=== PATIENT | male | born 1955 | race Caucasian/White ===

== ENCOUNTER 2017-05-10 13:08 | Emergency (ER) | payer OTHER ==
[~2017-05-10] VITALS: Ht 172.7 cm; Wt 92.0 kg
[~2017-05-10 13:08] MED LIST: AMLO5TAB2 PO; COLC0.6T37 PO; DILT180C PO; DIVA500T4 PO; FOLI-17 PO; GABA-826 PO; GABA300C10 PO; HYDR-3240 PO; HYDR200T PO; INDO50CA PO; LISI40TA PO; MAGN400T26 PO; METO100T5 PO; MULT-750 PO; THIA100T10 PO; ZOLP-413 PO; ZOLP10TA PO
[2017-05-10] MEDS ORDERED: methylPREDNISolone SOD SUCC 125 MG/2 ML ONE (13:27)
[2017-05-10] MEDS ORDERED: ALBUTEROL/IPRATROPIUM 2.5MG/0.5MG, 3 ML NPPB ONE (13:30)
[2017-05-10] MEDS ORDERED: methylPREDNISolone SOD SUCC 125 MG/2 ML IVP ONE (13:30)
[2017-05-10] MEDS ORDERED: SODIUM CHLORIDE 0.9%, 500ML IVBOLUS ONE ×2 (13:30→15:00)
[2017-05-10] MEDS ORDERED: SODIUM CHLORIDE FLUSH 10ML SYR IVF ONE (13:30)
[2017-05-10 13:41] LABS: MEAN CORPUSCULAR HEMOGLOBIN 26.8 pg (27.5-34.5); MEAN CORPUSCULAR HGB CONC 32.6 g/dL (33.2-36.2); MEAN CORPUSCULAR VOLUME 82.2 fL (81-97); PLATELET COUNT 489 x10^3/uL (130-400); RED BLOOD COUNT 4.18 x10^6/uL (4.38-5.82); RED CELL DISTRIBUTION WIDTH 17.5 % (9.4-14.8)
[2017-05-10 13:46] LABS: ALBUMIN 2.7 g/dL (3.4-5.0); ANION GAP 9 mmol/L (5-15); CALCIUM 8.9 mg/dL (8.5-10.1); CHLORIDE 106 mmol/L (98-107); CREATININE 1.67 mg/dL (0.7-1.3)
[2017-05-10] MEDS ORDERED: ALBUTEROL/IPRATROPIUM 2.5MG/0.5MG, 3 ML ONE (13:46)
[2017-05-10 13:50] LABS: ALKALINE PHOSPHATASE 67 U/L (45-117); BILIRUBIN,TOTAL 0.5 mg/dL (0.2-1.0); TOTAL PROTEIN 7.7 g/dL (6.4-8.2); TROPONIN I 0.032 ng/mL (0.000-0.045)
[2017-05-10 14:12] LABS: ALANINE AMINOTRANSFERASE 10 U/L (12-78)
[2017-05-10 14:17] LABS: BASOPHILS # (AUTO) 0.03 x10^3/uL (0-0.1); BASOPHILS % (AUTO) 0 % (0-1); EOSINOPHILS # (AUTO) 0.06 x10^3/uL (0-0.4); EOSINOPHILS % (AUTO) 1 % (1-7); LYMPHOCYTES # (AUTO) 1.21 x10^3/uL (1-3.4); LYMPHOCYTES % (AUTO) 11 % (22-44); MD SCAN; MONOCYTES # (AUTO) 1.48 x10^3/uL (0.2-0.8); MONOCYTES % (AUTO) 13 % (2-9); NEUTROPHILS # (AUTO) 8.75 x10^3/uL (1.8-6.8); NEUTROPHILS % (AUTO) 76 % (42-75)
[2017-05-10] MEDS ORDERED: SODIUM CHLORIDE 0.9% 1,000ML IVBOLUS ONE (17:00)
[2017-05-10 17:06] VITALS: BP 132/90
== END 2017-05-10 19:04 | disposition home or self-care (01) ==
LOC: ED 19:01
DX: J20.9 Acute bronchitis, unspecified (principal); E86.0 Dehydration; I10 Essential (primary) hypertension; J45.909 Unspecified asthma, uncomplicated; M10.9 Gout, unspecified
CPT/HCPCS: 36415; 71045; 80053; 83880; 84484; 85025; 93005; 94640; 96361; 96374; 99285; J2930; J7030; J7040; J7620

== ENCOUNTER 2017-11-22 03:57 | Emergency (ER) | payer OTHER ==
[~2017-11-22] VITALS: Ht 172.7 cm; Wt 74.2 kg
[~2017-11-22 03:57] MED LIST changes: -HYDR200T PO; +HYDR200T72 PO; -INDO50CA PO; +INDO50CA5 PO
[2017-11-22 03:58] VITALS: BP 146/88
[2017-11-22] MEDS ORDERED: COLCHICINE 0.6 MG TABLET PO ONE (05:00)
[2017-11-22] MEDS ORDERED: ONDANSETRON ODT 4 MG PO ONE (05:00)
[2017-11-22] MEDS ORDERED: HYDROmorphone 1 MG/ML, 1ML IVPush PRN (05:00)
[2017-11-22] MEDS ORDERED: SODIUM CHLORIDE FLUSH 10ML SYR IVF ONE (05:00)
[2017-11-22] MEDS ORDERED: COLCHICINE 0.6 MG TABLET ONE (05:58)
[2017-11-22] MEDS ORDERED: ONDANSETRON ODT 4 MG ONE (05:58)
[2017-11-22] MEDS ORDERED: HYDROmorphone 2 MG/ML, 1ML ONE (06:01)
[2017-11-22 06:29] LABS: MEAN CORPUSCULAR HEMOGLOBIN 26.7 pg (27.5-34.5); MEAN CORPUSCULAR HGB CONC 32.8 g/dL (33.2-36.2); MEAN CORPUSCULAR VOLUME 81.3 fL (81-97); MEAN PLATELET VOLUME 7.2 fL (7.4-10.4); PLATELET COUNT 444 x10^3/uL (130-400); RED BLOOD COUNT 4.41 x10^6/uL (4.38-5.82); RED CELL DISTRIBUTION WIDTH 23.9 % (9.4-14.8)
[2017-11-22] MEDS ORDERED: HYDROmorphone 1 MG/ML, 1ML IM ONE (06:30)
[2017-11-22 06:31] LABS: ALANINE AMINOTRANSFERASE 10 U/L (12-78); ALBUMIN 3.2 g/dL (3.4-5.0); ANION GAP 10 mmol/L (5-15); CALCIUM 9.3 mg/dL (8.5-10.1); CHLORIDE 104 mmol/L (98-107); CREATININE 1.11 mg/dL (0.7-1.3)
[2017-11-22 06:33] LABS: ALKALINE PHOSPHATASE 85 U/L (45-117); BILIRUBIN,TOTAL 0.5 mg/dL (0.2-1.0); TOTAL PROTEIN 7.8 g/dL (6.4-8.2)
[2017-11-22 06:56] LABS: BASOPHILS # (AUTO) 0.02 x10^3/uL (0-0.1); BASOPHILS % (AUTO) 0 % (0-1); EOSINOPHILS # (AUTO) 0.03 x10^3/uL (0-0.4); EOSINOPHILS % (AUTO) 0 % (1-7); LYMPHOCYTES % (AUTO) 16 % (22-44); MD SCAN; MONOCYTES # (AUTO) 1.51 x10^3/uL (0.2-0.8); MONOCYTES % (AUTO) 15 % (2-9); NEUTROPHILS # (AUTO) 6.65 x10^3/uL (1.8-6.8); NEUTROPHILS % (AUTO) 68 % (42-75)
[2017-11-23] MEDS ORDERED: MONT10TA6 PO (02:28)
== END 2017-11-22 07:35 | disposition home or self-care (01) ==
LOC: ED 05:38
DX: M10.042 Idiopathic gout, left hand (principal); M10.041 Idiopathic gout, right hand; M25.562 Pain in left knee; I10 Essential (primary) hypertension; G62.9 Polyneuropathy, unspecified; J45.909 Unspecified asthma, uncomplicated; Z88.8 Allergy status to other drugs, medicaments and biological substances
CPT/HCPCS: 36415; 73130; 73564; 80053; 84550; 85025; 96372; 99285; J1170

== ENCOUNTER 2018-02-01 08:37 | Emergency (ER) | payer OTHER ==
[~2018-02-01] VITALS: Ht 172.7 cm; Wt 96.5 kg
[~2018-02-01 08:37] MED LIST changes: +ALLO100T30 PO; -AMLO5TAB2 PO; +AMLO5TAB7 PO; +CEFD300C37 PO; +MONT10TA6 PO; +PRED10TA PO
[2018-02-01 09:28] LABS: BASOPHILS # (AUTO) 0.03 x10^3/uL (0-0.1); BASOPHILS % (AUTO) 0 % (0-1); EOSINOPHILS # (AUTO) 0.08 x10^3/uL (0-0.4); EOSINOPHILS % (AUTO) 1 % (1-7); LYMPHOCYTES # (AUTO) 2.48 x10^3/uL (1-3.4); LYMPHOCYTES % (AUTO) 31 % (22-44); MD NO; MEAN CORPUSCULAR HEMOGLOBIN 27.3 pg (27.5-34.5); MEAN CORPUSCULAR VOLUME 82.6 fL (81-97); MEAN PLATELET VOLUME 8.1 fL (7.4-10.4); MONOCYTES # (AUTO) 0.62 x10^3/uL (0.2-0.8); MONOCYTES % (AUTO) 8 % (2-9); NEUTROPHILS % (AUTO) 61 % (42-75); PLATELET COUNT 385 x10^3/uL (130-400); RED BLOOD COUNT 5.08 x10^6/uL (4.38-5.82); RED CELL DISTRIBUTION WIDTH 19.2 % (9.4-14.8)
[2018-02-01] MEDS ORDERED: ONDANSETRON 2MG/ML, 2ML IVPush ONE (09:30)
[2018-02-01] MEDS ORDERED: SODIUM CHLORIDE FLUSH 10ML SYR IVF ONE (09:30)
[2018-02-01 09:37] LABS: ALBUMIN 3.3 g/dL (3.4-5.0); ANION GAP 8 mmol/L (5-15); CALCIUM 9.2 mg/dL (8.5-10.1); CHLORIDE 105 mmol/L (98-107); CREATININE 0.89 mg/dL (0.7-1.3)
[2018-02-01] MEDS ORDERED: ONDANSETRON 2MG/ML, 2ML ONE (10:08)
[2018-02-01] MEDS ORDERED: OMNIPAQUE 350 MG/ML, 100ML BOTTLE ONE (10:09)
[2018-02-01] MEDS ORDERED: CIPROFLOXACIN/PMX 400MG/200ML 200 ML IV ONE (10:30)
[2018-02-01] MEDS ORDERED: KETOROLAC 30 MG/1 ML IVPush ONE (10:30)
[2018-02-01] MEDS ORDERED: METRONIDAZOLE PMX 500MG/100ML 100 ML IV ONE (10:30)
[2018-02-01 10:35] LABS: MICROSCOPIC NOT IND
[2018-02-01 10:39] LABS: CULTURE INDICATED? NO
[2018-02-01] MEDS ORDERED: KETOROLAC 30 MG/1 ML ONE (10:51)
[2018-02-01 11:06] VITALS: BP 156/100
== END 2018-02-01 11:09 | disposition home or self-care (01) ==
LOC: ED 09:22
DX: K57.30 Diverticulosis of large intestine without perforation or abscess without bleeding (principal); J45.909 Unspecified asthma, uncomplicated; I10 Essential (primary) hypertension; M19.90 Unspecified osteoarthritis, unspecified site
CPT/HCPCS: 36415; 74177; 80048; 81003; 82040; 85025; 96374; 96375; 99285; J1885; J2405; Q9967

== ENCOUNTER 2018-02-05 08:10 | Emergency (ER) | payer OTHER ==
[~2018-02-05] VITALS: Ht 172.7 cm; Wt 96.9 kg
[2018-02-05 09:55] VITALS: BP 125/74
== END 2018-02-05 10:20 | disposition home or self-care (01) ==
LOC: ED 09:43
DX: M13.131 Monoarthritis, not elsewhere classified, right wrist (principal); M10.9 Gout, unspecified
CPT/HCPCS: 29260; 99284

== ENCOUNTER 2018-04-17 19:48 | Emergency (ER) | payer OTHER ==
[~2018-04-17] VITALS: Ht 172.7 cm; Wt 95.0 kg
[~2018-04-17 19:48] MED LIST changes: +AMLO-150 PO; -AMLO5TAB7 PO
--- NOTE | 2018-04-17 19:57 | NUR ---
bib [facility] for right hand and wrist gout flare up, pt stated he took his home gout medications with no relief, pt denies trauma to wrist. monitors applied, siderails up x2, call light within reach. awaiting erp for eval
[2018-04-17] MEDS ORDERED: FAMOTIDINE 20 MG TABLET ONE (20:10)
[2018-04-17] MEDS ORDERED: INDOMETHACIN 50 MG CAPSULE ONE (20:11)
[2018-04-17] MEDS ORDERED: COLCHICINE 0.6 MG TABLET ONE (20:11)
[2018-04-17] MEDS ORDERED: OXYcodone/APAP 10/325MG TABLET ONE (20:11)
[2018-04-17] MEDS ORDERED: COLCHICINE 0.6 MG TABLET PO ONE (20:30)
[2018-04-17] MEDS ORDERED: INDOMETHACIN 50 MG CAPSULE PO ONE (20:30)
[2018-04-17] MEDS ORDERED: FAMOTIDINE 20 MG TABLET PO ONE (20:30)
[2018-04-17] MEDS ORDERED: OXYcodone/APAP 10/325MG TABLET PO ONE (20:30)
--- NOTE | 2018-04-17 21:37 | NUR ---
TASK RN: PT MEDICATED PER EMAR FOR HTN. PT REPORTS HX OF HTN AND COMPLIANT WITH MEDICATIONS. DENIES CP/SOB/STAUFFER. BP/SPO2/ECG MONITORING IN PLACE.
[2018-04-17 21:58] VITALS: BP 137/83
== END 2018-04-17 22:12 | disposition home or self-care (01) ==
LOC: ED 20:31
DX: M10.031 Idiopathic gout, right wrist (principal); I10 Essential (primary) hypertension; M19.90 Unspecified osteoarthritis, unspecified site; J45.909 Unspecified asthma, uncomplicated; F31.9 Bipolar disorder, unspecified
CPT/HCPCS: 99284

== ENCOUNTER 2018-08-02 13:07 | Inpatient (IN) | payer OTHER ==
[~2018-08-02] VITALS: Ht 172.7 cm; Wt 99.0 kg
[~2018-08-02 13:07] MED LIST changes: +ETOMIDATE 40 MG/20 ML ONE; +MIDAZOLAM 1 MG/ML, 5ML ONE; +PROPOFOL 10 MG/ML, 100ML IV ONE; +PROPOFOL 10 MG/ML, 20ML ONE; +SUCCINYLCHOLINE 20 MG/ML, 10ML ONE
--- NOTE | 2018-08-02 13:15 | NUR ---
REPORT RECEIVED FROM JANSE STRANGE. ASSUMED CARE OF PT. THIS IS A 63 YO MALE BIB [facility] FOR CONFUSION PER . PT IS ABLE TO ANSWER ALL ORIENTATION QUESTIONS WITHOUT DIFFICULTY. PER EMS, PT HAS HAVING AUDITORY HALLUCINATIONS AND SPEAKING TO PEOPLE WHO WERENT THERE. PT ATTEMPTED TO EAT SOMETHING OUT OF HAND IN ROOM, NOTHING IN HAND. PT IS RESTLESS ON GURNEY BUT COOPERATIVE. DRY LIPS AND MUCOUS MEMBRANES. PT HAS STERISTRIPS ON RIGHT SIDE OF NECK THAT APPEAR CLEAN, INTACT AND WOUND APPEARS WELL HEALING. PER PT IT IS FROM A LAMINECTOMY ON 05/27. NO SWELLING OR DISCHARGE NOTED. PT ON CONT BP, CARDIAC AND O2 MONITORS. WILL CONT TO MONITOR PT.
[2018-08-02] MEDS ORDERED: DOXY100T PO (13:26)
[2018-08-02] MEDS ORDERED: DOCU100T3 PO (13:27)
[2018-08-02] MEDS ORDERED: OXYC-302 PO (13:27)
[2018-08-02] MEDS ORDERED: CYCL-259 PO (13:27)
[2018-08-02] MEDS ORDERED: DILT240T3 PO (13:30)
[2018-08-02] MEDS ORDERED: SODIUM CHLORIDE FLUSH 10ML SYR IVF ONE (13:30)
[2018-08-02] MEDS ORDERED: SODIUM CHLORIDE 0.9% 1,000ML IVBOLUS ONE (13:30)
[2018-08-02] MEDS ORDERED: PRAM0.12 PO (13:31)
[2018-08-02] MEDS ORDERED: TRAZ-137 PO (13:32)
[2018-08-02] MEDS ORDERED: DULO30CA2 PO (13:33)
--- NOTE | 2018-08-02 13:59 | NUR ---
REPORT FROM JANES GONZALEZ. 2/2 NS HUNG PER ORDER. PT SITTING UP IN GURNEY, AWAKE/ALERT AND FOLLOWING COMMANDS. PT SPEECH IS APPROPRIATE AND ANSWERS QUESTIONS APPROPRIATELY. PT REPORTS RECENT ADMIT TO HOSPITAL FOR 'SIX WEEKS' FOLLOWING NECK SX. REPORTS MILD PAIN OVER SX SITE. BP/SPO2/ECG MONITORING IN PLACE. AFIB, HR 100-125 NOTED ON MONITOR. PT AWARE OF NEED FOR UA. URINAL AT BEDSIDE.
--- NOTE | 2018-08-02 14:00 | NUR ---
REPORT TO JANES ARMENTA WHO ASSUMED CARE OF PT.
[2018-08-02 14:13] LABS: BASOPHILS # (AUTO) 0.03 x10^3/uL (0-0.1); BASOPHILS % (AUTO) 0 % (0-1); EOSINOPHILS # (AUTO) 0.14 x10^3/uL (0-0.4); EOSINOPHILS % (AUTO) 1 % (1-7); LYMPHOCYTES # (AUTO) 1.89 x10^3/uL (1-3.4); LYMPHOCYTES % (AUTO) 17 % (22-44); MD NO; MEAN CORPUSCULAR HEMOGLOBIN 30.4 pg (27.5-34.5); MEAN CORPUSCULAR HGB CONC 33.8 g/dL (33.2-36.2); MEAN CORPUSCULAR VOLUME 89.8 fL (81-97); MEAN PLATELET VOLUME 7.4 fL (7.4-10.4); MONOCYTES # (AUTO) 0.94 x10^3/uL (0.2-0.8); MONOCYTES % (AUTO) 9 % (2-9); NEUTROPHILS # (AUTO) 7.81 x10^3/uL (1.8-6.8); NEUTROPHILS % (AUTO) 72 % (42-75); PLATELET COUNT 344 x10^3/uL (130-400); RED BLOOD COUNT 5.27 x10^6/uL (4.38-5.82); RED CELL DISTRIBUTION WIDTH 16.8 % (9.4-14.8)
[2018-08-02 14:22] LABS: INTERNATIONAL NORMALIZED RATIO 0.95 (0.93-1.1)
[2018-08-02 14:26] LABS: ALBUMIN 3.6 g/dL (3.4-5.0); ANION GAP 10 mmol/L (5-15); CALCIUM 8.9 mg/dL (8.5-10.1); CHLORIDE 106 mmol/L (98-107)
[2018-08-02 14:33] LABS: ALANINE AMINOTRANSFERASE 16 U/L (12-78); ALKALINE PHOSPHATASE 66 U/L (45-117); BILIRUBIN,TOTAL 1.3 mg/dL (0.2-1.0); CREATININE 1.09 mg/dL (0.7-1.3); TOTAL PROTEIN 7.6 g/dL (6.4-8.2); TROPONIN I 0.027 ng/mL (0.000-0.045)
--- NOTE | 2018-08-02 14:46 | NUR ---
PT SITTING UP IN GIN WHEATLEY NOTED. PT STATES "I WENT TO THE BATHROOM", HANDING RN URINAL. NO URINE IN URINAL. RN REQUESTING PT TO ATTEMPT FOR URINE, "OKAY, I WILL TRY AGAIN"
--- NOTE | 2018-08-02 14:47 | NUR ---
CALLED CT REGARDING ORDERED CT. HOSE SUSPENDER CUTTER STATES "LAST TIME WE WERE READY FOR HIM HIS LABS WEREN'T BACK. WE JUST HAVEN'T HAD A CHANCE TO PICK HIM UP YET".
--- NOTE | 2018-08-02 14:57 | NUR ---
PT ABLE TO PROVIDE SMALL URINE SAMPLE. SAMPLE COLLECTED AND WALKED TO LAB. URINAL LEFT AT BEDSIDE WITH INSTRUCTIONS TO CONTINUE TO TRY FOR SAMPLE. DOA ADDED PER ERP.
--- NOTE | 2018-08-02 15:19 | NUR ---
PT RETURNED FROM CT. AWAKE/ALERT. BP/SPO2/ECG MONITORING IN PLACE.
[2018-08-02 15:21] LABS: AMPHETAMINE SCREEN, URINE Negative (Negative); BARBITURATE SCREEN, URINE Negative (Negative); BENZODIAZEPINE SCREEN, URINE Negative (Negative); CANNABINOID SCREEN, URINE Positive (Negative); COCAINE SCREEN, URINE Negative (Negative); METHADONE SCREEN, URINE Negative (Negative); OPIATE SCREEN, URINE Positive (Negative)
[2018-08-02 15:24] LABS: MICROSCOPIC INDICATED
[2018-08-02] MEDS ORDERED: OMNIPAQUE 350 MG/ML, 100ML BOTTLE ONE (15:26)
--- NOTE | 2018-08-02 15:52 | NUR ---
PT SITTING UP IN GURNEY, AWAKE/ALERT. AFIB ON MONITOR, HR 105-125. PT FOLLOWING COMMANDS. PT ABLE TO VERBALIZE THAT HE TAKES TRAZADONE AT HOME BUT THEN MUMBLES UNRELATED THOUGHTS TO SELF, "I DON'T KNOW. THAT COULD EASILY COST ONE MILLION DOLLARS". BP/SPO2/ECG MONITORING REMAIN IN PLACE. POC IS MRI
[2018-08-02 15:55] LABS: CULTURE INDICATED? NO
[2018-08-02] MEDS ORDERED: LORazepam 2 MG/ML, 1ML ONE ×2 (16:05→16:25)
[2018-08-02] MEDS ORDERED: LORazepam 2 MG/ML, 1ML IVPush STA (16:05)
--- NOTE | 2018-08-02 16:20 | NUR ---
ALIE RN (TASK RN) MEDICATED PT PER ERP INSTRUCTION PRIOR TO MRI. PT IN MRI AT THIS TIME
--- NOTE | 2018-08-02 16:27 | NUR ---
CALL FROM [employer] PROFESSOR STATING THAT PT WILL HOLD STILL FOR SCAN. ERP AWARE. VERBAL ORDER RECEIVED FOR ADDITION 1MG ATIVAN IV. JANES DASH TO MRI TO MEDICATE PT.
[2018-08-02] MEDS ORDERED: LORazepam 2 MG/ML, 1ML IVPush ONE (16:29)
[2018-08-02] MEDS ORDERED: DIPHENHYDRAMINE 50 MG/ML, 1ML ONE (16:42)
[2018-08-02] MEDS ORDERED: HYDROmorphone 2 MG/ML, 1ML ONE (16:46)
--- NOTE | 2018-08-02 16:57 | NUR ---
PT TRANSFERRED FROM 22 TO 04. REPORT RECEIVED FROM JANES ARMENTA. PT AGITATED AND CONFUSED. PT HAVING VISUAL AND AUDITORY HALLUCINATIONS. PT NOT ABLE TO ANSWER QUESTIONS. ATTEMPTING TO HIT STAFF. INCREASING CONFUSION COMPARED TO WHEN PT ARRIVED. RAYA MENDES AT BEDSIDE FOR INTUBATION. ET TUBE 8.0 PLACED 26 IN AT LIP. SKIN PINK AND DIAPHORETIC.
--- NOTE | 2018-08-02 16:57 | NUR ---
LATE ENTRY: UNABLE TO COMPLETE MRI D/T PT MOVEMENT AND CONCERN FOR SAFETY. PT RETURNED FROM MRI AWAKE/ALERT W/ WORSENING MENTATION, NOT FOLLOWING COMMANDS AND RESTLESS. PT CONTINUOUSLY ATTEMPTING TO GET OUT OF BED. ERP AT BEDSIDE. PT MEDICATED PER ERP VERBAL ORDER WITH BENADRYL AND DILAUDID IN ASSUMPTION THAT PT MAY BE EXPERIENCING OPIOID WITHDRAWAL. NO IMPROVEMENT IN MENTATION/RESTLESSNESS. PT THEN COMBATIVE, TRYING TO HIT ERP AND RN. AIRWAY PATENT THROUGHOUT; SPO2 >90% ON RA. PER ERP, PT MOVED TO TRAUMA 4 FOR INTUBATION. REPORT TO LISA TRAUMA RN.
[2018-08-02] MEDS ORDERED: PROPOFOL 100 ML IV PRN ×2 (17:02→21:40)
[2018-08-02] MEDS ORDERED: MIDAZOLAM 1 MG/ML, 2ML IVPush ONE ×2 (17:30→19:30)
[2018-08-02] MEDS ORDERED: SUCCINYLCHOLINE 20 MG/ML, 10ML IVPush ONE (17:30)
[2018-08-02] MEDS ORDERED: ETOMIDATE 20 MG/10 ML IV ONE (17:30)
[2018-08-02] MEDS ORDERED: DIPHENHYDRAMINE 50 MG/ML, 1ML IVPush ONE (17:30)
[2018-08-02] MEDS ORDERED: HYDROmorphone 1 MG/ML, 1ML INJ IVPush PRN (17:30)
--- NOTE | 2018-08-02 17:30 | NUR ---
PT ON CONT BP, CARDIAC AND O2 MONITORS. VENT IN PLACE. PT HAS HAD OG TUBE AND TURNER PLACED AT THIS ITME. SECOND IV ESTABLISHED. PT TOLERATING SEDATION WELL AT THIS TIME. PT 90'S NSR. PT ON CONT BP, CARDIAC AND O2 MONITORS. WILL CONT TO MONITOR PT.
[2018-08-02] MEDS ORDERED: MIDAZOLAM 1 MG/ML, 2ML ONE (17:59)
--- NOTE | 2018-08-02 18:00 | NUR ---
TO MRI WITH RT AND PT AT THIS TIME.
[2018-08-02] MEDS ORDERED: GADOBUTROL 10 MMOL/10 ML PFS ONE (18:42)
--- NOTE | 2018-08-02 19:10 | NUR ---
PT BACK FROM MRI AT THIS TIME. PT TOLERATED MRI WELL. PT INTUBATED. SKIN PWD. PT TOLERATED INTUBATION WELL WITH SEDATION AT THIS TIME. PT ON CONT BP, CARDIAC AND O2 MONITORS. PT 95 NSR ON HOUSING INSPECTOR. WILL CONT TO MONITOR PT.
--- NOTE | 2018-08-02 19:12 | NUR ---
PROPOFOL DRIP TITRATED PER PROTOCOL.
[2018-08-02] MEDS ORDERED: PIPERACILLIN/TAZO/PMX 3.375GM 50 ML IV ONE (20:00)
[2018-08-02] MEDS ORDERED: PIPERACILLIN/TAZO/PMX 3.375GM 50 ML ONE (20:02)
--- NOTE | 2018-08-02 20:03 | NUR ---
RAYA MENDES REQUESTED THAT PROPOFOL DRIP BE HELD AT THIS TIME IN ORDER FOR THE PA FOR NEURO MD GARCIA TO COME ASSESS PT. PROPOFOL DRIP HELP AT THIS TIME. PT NSR 90S ON KILN FURNITURE SAW TENDER. PT ON CONT BP, CARDIAC AND O2 MONITORS. CALL LIGHT WITHIN REACH. WILL CONT TO MONITOR PT.
[2018-08-02] MEDS ORDERED: SODIUM CHLORIDE 0.9% 1,000 ML IV SCH (20:37)
[2018-08-02] MEDS ORDERED: ACETAMINOPHEN 325 MG TABLET PO PRN (21:00)
[2018-08-02] MEDS ORDERED: ONDANSETRON ODT 4 MG PO PRN (21:00)
[2018-08-02] MEDS ORDERED: morphine SULFATE 10 MG/ML, 1ML IVPush PRN (21:00)
[2018-08-02] MEDS ORDERED: ONDANSETRON 2MG/ML, 2ML IVPush PRN (21:00)
[2018-08-02] MEDS ORDERED: BISACODYL 10 MG SUPP PR PRN ×2 (21:00→22:00)
[2018-08-02] MEDS ORDERED: DOCUSATE 100 MG CAPSULE PO PRN (21:00)
[2018-08-02] MEDS ORDERED: POLYETHYLENE GLYCOL 17 GM PACKET PO PRN (21:00)
[2018-08-02] MEDS ORDERED: PROMETHAZINE 25 MG/ML, 1ML IM PRN (21:00)
--- NOTE | 2018-08-02 21:00 | NUR ---
REPORT TO JANES VILLANUEVA ON CICU. PT TOLERATING SEDATION WELL. PT NSR 90'S ON MANAGER FIELD SERVICE. PT ON CONT BP, CARDIAC NAD O2 MONITORS. WILL CONT TO MONITOR PT.
[2018-08-02 21:30] LABS: FREE T4 (FREE THYROXINE) 1.53 ng/dL (0.76-1.46); THYROID STIMULATING HORMONE 1.22 mIU/L (0.358-3.740)
[2018-08-02] MEDS: TRAZODONE 100MG TABLET PO SCH (21:32)
[2018-08-02] MEDS: CYCLOBENZAPRINE 10 MG TABLET PO SCH (21:32)
[2018-08-02] MEDS: DIVALPROEX 500 MG TAB.ER.24H PO SCH (21:32)
[2018-08-02 21:36] LABS: HEMOGLOBIN A1C 5.1 % (4.2-6.3)
[2018-08-02] MEDS ORDERED: DEXTROSE 50%, 50ML SYRINGE IVPush PRN (22:00)
[2018-08-02] MEDS ORDERED: GLUCAGON 1 MG IM PRN (22:00)
[2018-08-02] MEDS ORDERED: LACTULOSE 20 GM/30 ML UDC NG PRN (22:00)
[2018-08-02] MEDS ORDERED: SENNA/DOCUSATE TABLET NG PRN (22:00)
[2018-08-02] MEDS ORDERED: FENTANYL PF 100 MCG/2ML IVPush PRN (22:00)
[2018-08-02] MEDS ORDERED: DEXTROSE 4 GM TAB.CHEW PO PRN (22:00)
[2018-08-02] MEDS ORDERED: LIDOCAINE-MPF 1%, 2ML ENDO PRN (22:00)
[2018-08-02] MEDS ORDERED: PHARMACY MAY ADJ FOR RENAL FX MC SCH (22:00)
[2018-08-02] MEDS ORDERED: SENNA 176 MG/5 ML ORAL SOL NG PRN (22:00)
[2018-08-02] MEDS: ALBUTEROL/IPRATROPIUM 2.5MG/0.5MG, 3 ML INLINE SCH (22:21)
[2018-08-02] MEDS: MEROPENEM 500 MG in SODIUM CHLORIDE 0.9% 100 ML IV SCH (22:31)
[2018-08-02] MEDS: PROPOFOL 100 ML IV PRN (22:32)
[2018-08-02] MEDS: FAMOTIDINE 20 MG/2 ML IVPush SCH (22:32)
[2018-08-02 22:39] LABS: TROPONIN I 0.073 ng/mL (0.000-0.045)
[2018-08-02 22:51] VITALS: BP 154/78
[2018-08-02] MEDS ORDERED: THIAMINE 200 MG in SODIUM CHLORIDE 0.9% 50 ML IV ONE (23:00)
[2018-08-02] MEDS ORDERED: DAPTOMYCIN IVPB SCH (23:00)
[2018-08-02] MEDS ORDERED: SODIUM CHLORIDE 0.9% IVPB SCH (23:00)
[2018-08-03] MEDS: ALBUTEROL/IPRATROPIUM 2.5MG/0.5MG, 3 ML INLINE SCH ×4 (02:08→14:00)
[2018-08-03] MEDS: PROPOFOL 100 ML IV PRN ×3 (03:00→14:08)
[2018-08-03 04:12] LABS: BASOPHILS # (AUTO) 0.02 x10^3/uL (0-0.1); BASOPHILS % (AUTO) 0 % (0-1); EOSINOPHILS # (AUTO) 0.23 x10^3/uL (0-0.4); EOSINOPHILS % (AUTO) 2 % (1-7); LYMPHOCYTES # (AUTO) 1.66 x10^3/uL (1-3.4); LYMPHOCYTES % (AUTO) 16 % (22-44); MD NO; MEAN CORPUSCULAR HEMOGLOBIN 30.2 pg (27.5-34.5); MEAN CORPUSCULAR HGB CONC 33.5 g/dL (33.2-36.2); MEAN CORPUSCULAR VOLUME 90.2 fL (81-97); MEAN PLATELET VOLUME 7.5 fL (7.4-10.4); MONOCYTES # (AUTO) 1.28 x10^3/uL (0.2-0.8); MONOCYTES % (AUTO) 12 % (2-9); NEUTROPHILS % (AUTO) 70 % (42-75); PLATELET COUNT 312 x10^3/uL (130-400); RED BLOOD COUNT 4.63 x10^6/uL (4.38-5.82); RED CELL DISTRIBUTION WIDTH 16.5 % (9.4-14.8)
[2018-08-03 04:26] LABS: ALBUMIN 2.8 g/dL (3.4-5.0); ANION GAP 11 mmol/L (5-15); CALCIUM 8.6 mg/dL (8.5-10.1); CHLORIDE 109 mmol/L (98-107)
[2018-08-03 04:32] LABS: ALANINE AMINOTRANSFERASE 8 U/L (12-78); ALKALINE PHOSPHATASE 54 U/L (45-117); BILIRUBIN,TOTAL 0.6 mg/dL (0.2-1.0); CHOLESTEROL, TOTAL 155 mg/dL (140-239); CREATININE 0.89 mg/dL (0.7-1.3); HDL CHOL % 33 % (26-37); HDL CHOLESTEROL (DIRECT) 51 mg/dL (40-60); LDL CHOLESTEROL,CALCULATED 82 mg/dL (54-169); LDL/HDL RATIO 1.6 (0.5-3.0); TOTAL PROTEIN 6.4 g/dL (6.4-8.2); TRIGLYCERIDES 112 mg/dL (50-200); TROPONIN I 0.074 ng/mL (0.000-0.045); VLDL CHOLESTEROL 22 mg/dL (0-25)
[2018-08-03] MEDS: D5%-0.45% NACL 1,000 ML IV SCH ×2 (04:58→20:15)
[2018-08-03] MEDS: MEROPENEM 500 MG in SODIUM CHLORIDE 0.9% 100 ML IV SCH (06:24)
[2018-08-03] MEDS: INSULIN LISPRO 100 UNITS/ML, PEN SQ-INSULIN SCH ×4 (07:00→20:20)
[2018-08-03] MEDS: MEROPENEM 1 GM in SODIUM CHLORIDE 0.9% 100 ML IV SCH ×2 (07:24→14:08)
[2018-08-03] MEDS ORDERED: DILTIAZEM 120 MG TABLET ONE ×2 (08:29→08:45)
[2018-08-03] MEDS ORDERED: PRAMIPEXOLE 0.5MG TABLET ONE (08:29)
[2018-08-03] MEDS: FAMOTIDINE 20 MG/2 ML IVPush SCH ×2 (08:31→20:15)
[2018-08-03] MEDS: CYCLOBENZAPRINE 10 MG TABLET PO SCH ×3 (08:32→20:15)
[2018-08-03] MEDS: ALLOPURINOL 100 MG TABLET PO SCH (08:32)
[2018-08-03] MEDS: ASPIRIN 325 MG TABLET PO SCH (08:32)
[2018-08-03] MEDS: DULOXETINE 30 MG CAPSULE.DR PO SCH (08:32)
[2018-08-03] MEDS: THIAMINE 100MG TABLET PO SCH ×2 (08:32→20:15)
[2018-08-03] MEDS: MULTIVITAMIN 1 TABLET PO SCH (08:32)
[2018-08-03] MEDS: MONTELUKAST 10 MG TABLET PO SCH (08:46)
[2018-08-03] MEDS: SODIUM CHLORIDE FLUSH 10ML SYR IVF SCH ×2 (09:00→20:16)
[2018-08-03] MEDS ORDERED: DILTIAZEM 240 MG CAP.ER.24H PO SCH (09:00)
[2018-08-03] MEDS: DOCUSATE 100 MG CAPSULE PO SCH (09:00)
[2018-08-03] MEDS: DILTIAZEM 30 MG TABLET PO SCH ×3 (09:29→20:15)
[2018-08-03] MEDS: PRAMIPEXOLE 0.125MG TABLET PO SCH (09:29)
[2018-08-03 13:30] VITALS: BP 136/87
[2018-08-03] MEDS: LINEZOLID PMX 600MG/300ML 300 ML IV SCH (13:30)
[2018-08-03] MEDS ORDERED: ALBUTEROL SULFATE 2.5 MG/3 ML NPPB PRN (16:00)
[2018-08-03] MEDS: OXYcodone IR 5MG TABLET PO PRN ×2 (16:54→21:14)
[2018-08-03] MEDS: DIVALPROEX 500 MG TAB.ER.24H PO SCH (20:15)
[2018-08-03] MEDS: TRAZODONE 100MG TABLET PO SCH (20:20)
[2018-08-04] MEDS: OXYcodone IR 5MG TABLET PO PRN ×5 (01:29→23:22)
[2018-08-04] MEDS: MEROPENEM 1 GM in SODIUM CHLORIDE 0.9% 100 ML IV SCH ×4 (02:38→23:21)
[2018-08-04] MEDS: LINEZOLID PMX 600MG/300ML 300 ML IV SCH ×2 (04:26→16:36)
[2018-08-04 04:41] LABS: BASOPHILS # (AUTO) 0.05 x10^3/uL (0-0.1); BASOPHILS % (AUTO) 1 % (0-1); EOSINOPHILS # (AUTO) 0.31 x10^3/uL (0-0.4); EOSINOPHILS % (AUTO) 3 % (1-7); LYMPHOCYTES # (AUTO) 1.54 x10^3/uL (1-3.4); LYMPHOCYTES % (AUTO) 15 % (22-44); MD NO; MEAN CORPUSCULAR HEMOGLOBIN 30.4 pg (27.5-34.5); MEAN PLATELET VOLUME 7.3 fL (7.4-10.4); MONOCYTES # (AUTO) 1.35 x10^3/uL (0.2-0.8); MONOCYTES % (AUTO) 13 % (2-9); NEUTROPHILS # (AUTO) 7.34 x10^3/uL (1.8-6.8); NEUTROPHILS % (AUTO) 69 % (42-75); PLATELET COUNT 295 x10^3/uL (130-400); RED BLOOD COUNT 4.45 x10^6/uL (4.38-5.82)
[2018-08-04] MEDS: D5%-0.45% NACL 1,000 ML IV SCH (08:10)
[2018-08-04] MEDS: INSULIN LISPRO 100 UNITS/ML, PEN SQ-INSULIN SCH ×4 (08:10→20:51)
[2018-08-04] MEDS: ASPIRIN 325 MG TABLET PO SCH (09:21)
[2018-08-04] MEDS: PRAMIPEXOLE 0.125MG TABLET PO SCH (09:21)
[2018-08-04] MEDS: MONTELUKAST 10 MG TABLET PO SCH (09:21)
[2018-08-04] MEDS: MULTIVITAMIN 1 TABLET PO SCH (09:21)
[2018-08-04] MEDS: FAMOTIDINE 20 MG/2 ML IVPush SCH (09:21)
[2018-08-04] MEDS: DULOXETINE 30 MG CAPSULE.DR PO SCH (09:22)
[2018-08-04] MEDS: DOCUSATE 100 MG CAPSULE PO SCH (09:22)
[2018-08-04] MEDS: ALLOPURINOL 100 MG TABLET PO SCH (09:22)
[2018-08-04] MEDS: SODIUM CHLORIDE FLUSH 10ML SYR IVF SCH ×2 (09:22→20:54)
[2018-08-04] MEDS: CYCLOBENZAPRINE 10 MG TABLET PO SCH ×3 (09:22→20:53)
[2018-08-04] MEDS: THIAMINE 100MG TABLET PO SCH ×2 (09:22→20:53)
[2018-08-04] MEDS: DILTIAZEM 240 MG CAP.ER.24H PO SCH (09:30)
[2018-08-04 18:01] VITALS: BP 133/91
[2018-08-04 19:30] VITALS: BP 118/64
[2018-08-04] MEDS: DIVALPROEX 500 MG TAB.ER.24H PO SCH (20:53)
[2018-08-04] MEDS: TRAZODONE 100MG TABLET PO SCH (20:53)
[2018-08-05] VITALS (20 sets, daily range): BP systolic 92–156; BP diastolic 60–100
[2018-08-05] MEDS: LINEZOLID PMX 600MG/300ML 300 ML IV SCH ×2 (03:31→18:42)
[2018-08-05] MEDS: OXYcodone IR 5MG TABLET PO PRN ×3 (05:39→21:04)
[2018-08-05] MEDS: MEROPENEM 1 GM in SODIUM CHLORIDE 0.9% 100 ML IV SCH ×3 (06:34→22:44)
[2018-08-05] MEDS: INSULIN LISPRO 100 UNITS/ML, PEN SQ-INSULIN SCH ×4 (07:00→21:00)
[2018-08-05] MEDS: THIAMINE 100MG TABLET PO SCH ×2 (07:58→21:05)
[2018-08-05] MEDS: CYCLOBENZAPRINE 10 MG TABLET PO SCH ×3 (07:59→21:04)
[2018-08-05] MEDS: DILTIAZEM 240 MG CAP.ER.24H PO SCH (07:59)
[2018-08-05] MEDS: ASPIRIN 325 MG TABLET PO SCH (07:59)
[2018-08-05] MEDS: DOCUSATE 100 MG CAPSULE PO SCH (08:00)
[2018-08-05] MEDS: MONTELUKAST 10 MG TABLET PO SCH (08:00)
[2018-08-05] MEDS: MULTIVITAMIN 1 TABLET PO SCH (08:00)
[2018-08-05] MEDS: DULOXETINE 30 MG CAPSULE.DR PO SCH (08:00)
[2018-08-05] MEDS: SODIUM CHLORIDE FLUSH 10ML SYR IVF SCH ×2 (09:25→21:03)
[2018-08-05] MEDS: AMIODARONE 900 MG in DEXTROSE 5% 482 ML IV PRN (09:34)
[2018-08-05] MEDS ORDERED: AMIODARONE 150 MG in DEXTROSE 5% 100 ML IV ONE (10:00)
[2018-08-05] MEDS ORDERED: METOPROLOL 1 MG/ML, 5ML ONE (10:24)
[2018-08-05] MEDS ORDERED: METOPROLOL 1 MG/ML, 5ML IVPush ONE (10:30)
[2018-08-05] MEDS ORDERED: CEFTRIAXONE PMX 2GM/50ML 50 ML IV SCH (10:30)
[2018-08-05] MEDS ORDERED: LINEZOLID PMX 600MG/300ML 300 ML IV SCH (11:00)
[2018-08-05] MEDS ORDERED: DIGOXIN 0.25 MG/ML, 2ML IVPush ONE (12:00)
[2018-08-05 12:36] LABS: ANION GAP 9 mmol/L (5-15); CALCIUM 8.9 mg/dL (8.5-10.1); CHLORIDE 104 mmol/L (98-107); CREATININE 0.72 mg/dL (0.7-1.3)
[2018-08-05 12:53] LABS: BASOPHILS # (AUTO) 0.02 x10^3/uL (0-0.1); BASOPHILS % (AUTO) 0 % (0-1); EOSINOPHILS # (AUTO) 0.03 x10^3/uL (0-0.4); EOSINOPHILS % (AUTO) 0 % (1-7); LYMPHOCYTES # (AUTO) 1.19 x10^3/uL (1-3.4); LYMPHOCYTES % (AUTO) 7 % (22-44); MD SCAN; MEAN CORPUSCULAR HEMOGLOBIN 30.8 pg (27.5-34.5); MEAN CORPUSCULAR HGB CONC 33.3 g/dL (33.2-36.2); MEAN CORPUSCULAR VOLUME 92.5 fL (81-97); MEAN PLATELET VOLUME 7.9 fL (7.4-10.4); MONOCYTES # (AUTO) 2.35 x10^3/uL (0.2-0.8); MONOCYTES % (AUTO) 14 % (2-9); NEUTROPHILS # (AUTO) 12.95 x10^3/uL (1.8-6.8); NEUTROPHILS % (AUTO) 78 % (42-75); PLATELET COUNT 314 x10^3/uL (130-400); RED BLOOD COUNT 4.76 x10^6/uL (4.38-5.82)
[2018-08-05] MEDS ORDERED: GADOBUTROL 10 MMOL/10 ML PFS ONE (13:28)
[2018-08-05 15:43] LABS: HCT (SEDRATE) 42.3 % (39.2-51.8)
[2018-08-05] MEDS: PRAMIPEXOLE 0.125MG TABLET PO SCH (16:03)
[2018-08-05 16:06] LABS: C-REACTIVE PROTEIN, QUANT > 19.00 mg/dL (0.02-0.49)
[2018-08-05] MEDS: ALLOPURINOL 100 MG TABLET PO SCH (16:08)
[2018-08-05] MEDS: TRAZODONE 100MG TABLET PO SCH (21:04)
[2018-08-05] MEDS: DIVALPROEX 500 MG TAB.ER.24H PO SCH (21:04)
[2018-08-06] VITALS (14 sets, daily range): BP systolic 140–177; BP diastolic 69–106
[2018-08-06] MEDS: OXYcodone IR 5MG TABLET PO PRN ×3 (04:28→20:41)
[2018-08-06 05:03] LABS: MEAN CORPUSCULAR HEMOGLOBIN 31.2 pg (27.5-34.5); MEAN CORPUSCULAR HGB CONC 33.2 g/dL (33.2-36.2); MEAN CORPUSCULAR VOLUME 93.9 fL (81-97); MEAN PLATELET VOLUME 8.2 fL (7.4-10.4); PLATELET COUNT 349 x10^3/uL (130-400); RED BLOOD COUNT 4.64 x10^6/uL (4.38-5.82); RED CELL DISTRIBUTION WIDTH 15.8 % (9.4-14.8)
[2018-08-06 05:11] LABS: ALANINE AMINOTRANSFERASE 11 U/L (12-78); ALBUMIN 2.5 g/dL (3.4-5.0); ANION GAP 11 mmol/L (5-15); CALCIUM 9.1 mg/dL (8.5-10.1); CHLORIDE 103 mmol/L (98-107); CREATININE 0.71 mg/dL (0.7-1.3)
[2018-08-06 05:13] LABS: ALKALINE PHOSPHATASE 60 U/L (45-117); BILIRUBIN,TOTAL 0.5 mg/dL (0.2-1.0); TOTAL PROTEIN 6.8 g/dL (6.4-8.2)
[2018-08-06 05:37] LABS: BASOPHILS # (AUTO) 0.04 x10^3/uL (0-0.1); BASOPHILS % (AUTO) 0 % (0-1); EOSINOPHILS # (AUTO) 0.03 x10^3/uL (0-0.4); EOSINOPHILS % (AUTO) 0 % (1-7); LYMPHOCYTES % (AUTO) 6 % (22-44); MD SCAN; MONOCYTES # (AUTO) 2.05 x10^3/uL (0.2-0.8); MONOCYTES % (AUTO) 12 % (2-9); NEUTROPHILS % (AUTO) 82 % (42-75)
[2018-08-06] MEDS: LINEZOLID PMX 600MG/300ML 300 ML IV SCH ×2 (06:06→19:42)
[2018-08-06] MEDS: FILTER 0.22 MICRON (AMIODARONE) IV PRN (06:30)
[2018-08-06] MEDS: AMIODARONE 900 MG in DEXTROSE 5% 482 ML IV PRN (06:30)
[2018-08-06] MEDS: MEROPENEM 1 GM in SODIUM CHLORIDE 0.9% 100 ML IV SCH ×2 (06:35→17:57)
[2018-08-06] MEDS: INSULIN LISPRO 100 UNITS/ML, PEN SQ-INSULIN SCH ×4 (07:24→21:00)
[2018-08-06] MEDS ORDERED: METOPROLOL 1 MG/ML, 5ML ONE (07:40)
[2018-08-06] MEDS ORDERED: METOPROLOL 1 MG/ML, 5ML IVPush ONE (08:00)
[2018-08-06] MEDS: ASPIRIN 325 MG TABLET PO SCH (09:00)
[2018-08-06] MEDS: MONTELUKAST 10 MG TABLET PO SCH (09:00)
[2018-08-06] MEDS: PRAMIPEXOLE 0.125MG TABLET PO SCH ×2 (09:00→17:47)
[2018-08-06] MEDS: DOCUSATE 100 MG CAPSULE PO SCH (09:00)
[2018-08-06] MEDS: CYCLOBENZAPRINE 10 MG TABLET PO SCH ×3 (09:00→21:20)
[2018-08-06] MEDS: THIAMINE 100MG TABLET PO SCH ×2 (09:00→21:20)
[2018-08-06] MEDS: SODIUM CHLORIDE FLUSH 10ML SYR IVF SCH ×2 (09:00→21:20)
[2018-08-06] MEDS: ALLOPURINOL 100 MG TABLET PO SCH (09:00)
[2018-08-06] MEDS: MULTIVITAMIN 1 TABLET PO SCH (09:00)
[2018-08-06] MEDS: DULOXETINE 30 MG CAPSULE.DR PO SCH ×2 (09:00→17:47)
[2018-08-06] MEDS: METOPROLOL TARTRATE 50 MG TABLET PO SCH ×3 (09:45→23:48)
[2018-08-06] MEDS ORDERED: LIDOCAINE-MPF 1%, 5ML ONE ×2 (14:11→14:12)
[2018-08-06 15:49] LABS: SYN CELLS COUNTED 1005
[2018-08-06] MEDS: TAMSULOSIN 0.4 MG CAP.ER.24H PO SCH (17:48)
[2018-08-06] MEDS: DIVALPROEX 500 MG TAB.ER.24H PO SCH (21:20)
[2018-08-06] MEDS: TRAZODONE 100MG TABLET PO SCH (21:20)
[2018-08-06] MEDS ORDERED: LORazepam 2 MG/ML, 1ML IVPush ONE (23:00)
[2018-08-06] MEDS ORDERED: OMNIPAQUE 350 MG/ML, 150 ML BOTTLE ONE (23:37)
[2018-08-07] MEDS: MEROPENEM 1 GM in SODIUM CHLORIDE 0.9% 100 ML IV SCH ×3 (01:41→17:47)
[2018-08-07 03:10] VITALS: BP 150/80
[2018-08-07] MEDS ORDERED: ZIPRASIDONE 20 MG INJ IM ONE ×2 (03:30→15:30)
[2018-08-07] MEDS: LINEZOLID PMX 600MG/300ML 300 ML IV SCH (06:14)
[2018-08-07 06:52] VITALS: BP 162/109
[2018-08-07 07:56] LABS: MEAN CORPUSCULAR HEMOGLOBIN 29.8 pg (27.5-34.5); MEAN CORPUSCULAR HGB CONC 32.2 g/dL (33.2-36.2); MEAN CORPUSCULAR VOLUME 92.5 fL (81-97); MEAN PLATELET VOLUME 7.4 fL (7.4-10.4); PLATELET COUNT 443 x10^3/uL (130-400); RED BLOOD COUNT 4.54 x10^6/uL (4.38-5.82); RED CELL DISTRIBUTION WIDTH 15.5 % (9.4-14.8)
[2018-08-07 07:58] LABS: ANION GAP 11 mmol/L (5-15); CALCIUM 9.6 mg/dL (8.5-10.1); CHLORIDE 104 mmol/L (98-107); CREATININE 0.82 mg/dL (0.7-1.3)
[2018-08-07] MEDS: INSULIN LISPRO 100 UNITS/ML, PEN SQ-INSULIN SCH ×3 (08:10→16:00)
[2018-08-07] MEDS ORDERED: MIDAZOLAM 1 MG/ML, 2ML ONE (08:12)
[2018-08-07] MEDS ORDERED: FENTANYL PF 250 MCG/5ML ONE (08:12)
[2018-08-07] MEDS ORDERED: PROPOFOL 10 MG/ML, 20ML ONE (08:15)
[2018-08-07 08:17] VITALS: BP 162/93
[2018-08-07] MEDS ORDERED: CEFAZOLIN 1,000 MG ONE ×2 (08:19)
[2018-08-07] MEDS ORDERED: SODIUM CHLORIDE 0.9% PF 10ML ONE (08:19)
[2018-08-07 08:22] LABS: MD YES
[2018-08-07] MEDS: METOPROLOL TARTRATE 50 MG TABLET PO SCH ×3 (08:28→23:27)
[2018-08-07 08:30] LABS: <PLATELET ESTIMATE> INCREASED; <PLT MORPHOLOGY> NORMAL PLT MORPH; <RBC MORPHOLOGY> NORMAL; LYMPH#(MANUAL) 1.52 x10^3/uL (1-3.4); LYMPHS% (MANUAL) 6 % (22-44); MONOS#(MANUAL) 0.51 x10^3/uL (0.3-2.7); MONOS% (MANUAL) 2 % (2-9); SEG#(MANUAL) 23.28 x10^3/uL (1.8-6.8); SEGS% (MANUAL) 92 % (42-75)
[2018-08-07] MEDS ORDERED: BACITRACIN 50,000 UNIT ONE (08:33)
[2018-08-07] MEDS ORDERED: MEPERIDINE/PF 25MG/0.5ML IVPush PRN (09:00)
[2018-08-07] MEDS ORDERED: PROMETHAZINE 25 MG/ML, 1ML IV PRN (09:00)
[2018-08-07] MEDS ORDERED: PROMETHAZINE 12.5 MG SUPP PR PRN (09:00)
[2018-08-07] MEDS ORDERED: DEXAMETHASONE 4 MG/ML, 1ML IV PRN (09:00)
[2018-08-07] MEDS ORDERED: DIPHENHYDRAMINE 50 MG/ML, 1ML IVPush PRN ×2 (09:00)
[2018-08-07] MEDS ORDERED: PROMETHAZINE 25 MG SUPP PR PRN (09:00)
[2018-08-07] MEDS ORDERED: FENTANYL PF 100 MCG/2ML IV PRN (09:00)
[2018-08-07] MEDS ORDERED: LABETALOL 5MG/ML, 20ML IV PRN (09:00)
[2018-08-07] MEDS ORDERED: PROMETHAZINE 25 MG/ML, 1ML IM PRN ×2 (09:00)
[2018-08-07] MEDS ORDERED: ACETAMINOPHEN 325 MG TABLET PO PRN (09:00)
[2018-08-07] MEDS ORDERED: MORPHINE SULFATE 4 MG/ML, 1ML IVPush PRN (09:00)
[2018-08-07] MEDS ORDERED: HYDROmorphone 2 MG/ML, 1ML IVPush PRN (09:00)
[2018-08-07] MEDS ORDERED: hydrALAzine 20 MG/ML, 1ML IV PRN (09:00)
[2018-08-07] MEDS ORDERED: OXYcodone 5 MG/5 ML ORAL.SOL UDC PO PRN (09:00)
[2018-08-07] MEDS ORDERED: FENTANYL PF 100 MCG/2ML ONE (09:59)
[2018-08-07] MEDS ORDERED: HYDROmorphone 2 MG/ML, 1ML ONE (10:00)
[2018-08-07] MEDS ORDERED: OXYcodone 5 MG/5 ML ORAL.SOL UDC ONE (10:00)
[2018-08-07] MEDS ORDERED: MIDAZOLAM 1 MG/ML, 2ML IV PRN (10:00)
[2018-08-07] MEDS ORDERED: LORazepam 2 MG/ML, 1ML ONE (10:14)
[2018-08-07] MEDS: LORazepam 2 MG/ML, 1ML IVPush PRN ×2 (10:15→10:20)
[2018-08-07 10:44] VITALS: BP 142/62
[2018-08-07] MEDS: SODIUM CHLORIDE FLUSH 10ML SYR IVF SCH ×2 (10:59→21:26)
[2018-08-07] MEDS: DULOXETINE 30 MG CAPSULE.DR PO SCH (11:13)
[2018-08-07] MEDS: CYCLOBENZAPRINE 10 MG TABLET PO SCH (11:13)
[2018-08-07] MEDS: TAMSULOSIN 0.4 MG CAP.ER.24H PO SCH (11:13)
[2018-08-07] MEDS: DOCUSATE 100 MG CAPSULE PO SCH (11:13)
[2018-08-07] MEDS: ASPIRIN 325 MG TABLET PO SCH (11:13)
[2018-08-07] MEDS: THIAMINE 100MG TABLET PO SCH ×2 (11:14→21:26)
[2018-08-07] MEDS: MULTIVITAMIN 1 TABLET PO SCH (11:14)
[2018-08-07] MEDS: MONTELUKAST 10 MG TABLET PO SCH (11:14)
[2018-08-07] MEDS: PRAMIPEXOLE 0.125MG TABLET PO SCH (11:14)
[2018-08-07] MEDS: ALLOPURINOL 100 MG TABLET PO SCH (11:14)
[2018-08-07] MEDS: ZIPRASIDONE 20 MG INJ IM PRN ×2 (13:08→22:26)
[2018-08-07] MEDS: hydrALAzine 20 MG/ML, 1ML IVPush PRN (13:53)
[2018-08-07] MEDS: AMIODARONE 900 MG in DEXTROSE 5% 482 ML IV PRN (14:23)
[2018-08-07] MEDS ORDERED: DEXMEDETOMIDINE 200 MCG in SODIUM CHLORIDE 0.9% 48 ML IV PRN (14:30)
[2018-08-07] MEDS: LABETALOL 5MG/ML, 20ML IVPush PRN (15:42)
[2018-08-07] MEDS ORDERED: [UNRECOGNIZED DRUG - REMARK] MC SCH (17:30)
[2018-08-07] MEDS: DEXMEDETOMIDINE 400 MCG in SODIUM CHLORIDE 0.9% 96 ML IV PRN ×2 (19:16→23:25)
[2018-08-07] MEDS: DIVALPROEX 500 MG TAB.ER.24H PO SCH (21:26)
[2018-08-08] MEDS: MEROPENEM 1 GM in SODIUM CHLORIDE 0.9% 100 ML IV SCH (01:48)
[2018-08-08] MEDS: DEXMEDETOMIDINE 400 MCG in SODIUM CHLORIDE 0.9% 96 ML IV PRN (02:34)
[2018-08-08 04:00] VITALS: BP 143/66
[2018-08-08 04:36] LABS: MEAN CORPUSCULAR HEMOGLOBIN 29.5 pg (27.5-34.5); MEAN CORPUSCULAR HGB CONC 31.9 g/dL (33.2-36.2); MEAN CORPUSCULAR VOLUME 92.6 fL (81-97); MEAN PLATELET VOLUME 7.3 fL (7.4-10.4); PLATELET COUNT 428 x10^3/uL (130-400); RED BLOOD COUNT 4.07 x10^6/uL (4.38-5.82); RED CELL DISTRIBUTION WIDTH 15.9 % (9.4-14.8)
[2018-08-08 04:47] LABS: ANION GAP 9 mmol/L (5-15); CALCIUM 9.4 mg/dL (8.5-10.1); CHLORIDE 109 mmol/L (98-107); CREATININE 0.88 mg/dL (0.7-1.3)
[2018-08-08 05:05] LABS: BASOPHILS # (AUTO) 0.06 x10^3/uL (0-0.1); BASOPHILS % (AUTO) 0 % (0-1); EOSINOPHILS # (AUTO) 0.01 x10^3/uL (0-0.4); EOSINOPHILS % (AUTO) 0 % (1-7); LYMPHOCYTES # (AUTO) 1.42 x10^3/uL (1-3.4); LYMPHOCYTES % (AUTO) 9 % (22-44); MD SCAN; MONOCYTES # (AUTO) 2.04 x10^3/uL (0.2-0.8); MONOCYTES % (AUTO) 12 % (2-9); NEUTROPHILS # (AUTO) 13.04 x10^3/uL (1.8-6.8); NEUTROPHILS % (AUTO) 79 % (42-75)
[2018-08-08] MEDS: METOPROLOL TARTRATE 50 MG TABLET PO SCH (08:00)
[2018-08-08] MEDS: MULTIVITAMIN 1 TABLET PO SCH (09:00)
[2018-08-08] MEDS: DOCUSATE 100 MG CAPSULE PO SCH (09:00)
[2018-08-08] MEDS: THIAMINE 100MG TABLET PO SCH ×2 (09:00→21:18)
[2018-08-08] MEDS: CEFAZOLIN 2,000 MG in SODIUM CHLORIDE 0.9% 50 ML IV SCH ×3 (09:16→23:51)
[2018-08-08] MEDS: SODIUM CHLORIDE FLUSH 10ML SYR IVF SCH ×2 (09:18→21:18)
[2018-08-08] MEDS: hydrALAzine 20 MG/ML, 1ML IVPush PRN ×2 (10:36→19:13)
--- NOTE | 2018-08-08 11:30 | NUR ---
TF Goal: Promote @ 70 ml/hour
[2018-08-08] MEDS: DIVALPROEX 125 MG CAP.SPRINK PO SCH ×2 (13:45→19:46)
[2018-08-08] MEDS: ALLOPURINOL 100 MG TABLET PO SCH (13:46)
[2018-08-08] MEDS: DULOXETINE 30 MG CAPSULE.DR PO SCH (13:47)
[2018-08-08] MEDS: MONTELUKAST 10 MG TABLET PO SCH (13:47)
[2018-08-08] MEDS: TAMSULOSIN 0.4 MG CAP.ER.24H PO SCH (13:48)
[2018-08-08] MEDS: PRAMIPEXOLE 0.125MG TABLET PO SCH (13:48)
[2018-08-08] MEDS: ASPIRIN 325 MG TABLET PO SCH (13:49)
[2018-08-08] MEDS: DILTIAZEM 60 MG TABLET PO SCH ×2 (13:50→19:46)
[2018-08-08] MEDS ORDERED: DEXMEDETOMIDINE 200 MCG in SODIUM CHLORIDE 0.9% 48 ML IV PRN (14:30)
[2018-08-08] MEDS: LABETALOL 5MG/ML, 20ML IVPush PRN ×2 (16:55→23:20)
[2018-08-08] MEDS: FILTER 0.22 MICRON (AMIODARONE) IV PRN (20:08)
[2018-08-08] MEDS: AMIODARONE 900 MG in DEXTROSE 5% 482 ML IV PRN (20:08)
[2018-08-09] VITALS (7 sets, daily range): BP systolic 148–204; BP diastolic 74–94
[2018-08-09] MEDS: DILTIAZEM 60 MG TABLET PO SCH (02:12)
[2018-08-09] MEDS: DIVALPROEX 125 MG CAP.SPRINK PO SCH ×2 (02:12→09:20)
[2018-08-09] MEDS: hydrALAzine 20 MG/ML, 1ML IVPush PRN ×2 (04:06→20:07)
[2018-08-09 04:15] LABS: MEAN CORPUSCULAR HEMOGLOBIN 30.8 pg (27.5-34.5); MEAN CORPUSCULAR HGB CONC 33.2 g/dL (33.2-36.2); MEAN CORPUSCULAR VOLUME 92.6 fL (81-97); MEAN PLATELET VOLUME 7.2 fL (7.4-10.4); PLATELET COUNT 531 x10^3/uL (130-400); RED BLOOD COUNT 4.15 x10^6/uL (4.38-5.82); RED CELL DISTRIBUTION WIDTH 15.5 % (9.4-14.8)
[2018-08-09 04:26] LABS: ALANINE AMINOTRANSFERASE 19 U/L (12-78); ALBUMIN 2.1 g/dL (3.4-5.0); ANION GAP 10 mmol/L (5-15); CALCIUM 9.1 mg/dL (8.5-10.1); CHLORIDE 106 mmol/L (98-107)
[2018-08-09 04:29] LABS: ALKALINE PHOSPHATASE 68 U/L (45-117); BILIRUBIN,TOTAL 0.3 mg/dL (0.2-1.0); CREATININE 0.67 mg/dL (0.7-1.3); TOTAL PROTEIN 6.5 g/dL (6.4-8.2)
[2018-08-09 04:42] LABS: BASOPHILS # (AUTO) 0.05 x10^3/uL (0-0.1); BASOPHILS % (AUTO) 0 % (0-1); EOSINOPHILS # (AUTO) 0.01 x10^3/uL (0-0.4); EOSINOPHILS % (AUTO) 0 % (1-7); LYMPHOCYTES # (AUTO) 1.39 x10^3/uL (1-3.4); LYMPHOCYTES % (AUTO) 9 % (22-44); MD SCAN; MONOCYTES # (AUTO) 1.15 x10^3/uL (0.2-0.8); MONOCYTES % (AUTO) 8 % (2-9); NEUTROPHILS # (AUTO) 12.53 x10^3/uL (1.8-6.8); NEUTROPHILS % (AUTO) 83 % (42-75)
[2018-08-09] MEDS ORDERED: METOPROLOL 1 MG/ML, 5ML ONE (04:46)
[2018-08-09] MEDS: METOPROLOL 1 MG/ML, 5ML IVPush PRN ×2 (04:49→14:28)
[2018-08-09] MEDS ORDERED: HEPARIN 5,000 UNITS/ML, 1ML ONE (05:06)
[2018-08-09] MEDS: CEFAZOLIN 2,000 MG in SODIUM CHLORIDE 0.9% 50 ML IV SCH (07:47)
[2018-08-09] MEDS ORDERED: DILTIAZEM 5 MG/ML, 5ML IVPush ONE (09:00)
[2018-08-09] MEDS: SODIUM CHLORIDE FLUSH 10ML SYR IVF SCH ×2 (09:00→20:06)
[2018-08-09] MEDS: DILTIAZEM 240 MG CAP.ER.24H PO SCH (09:20)
[2018-08-09] MEDS: TAMSULOSIN 0.4 MG CAP.ER.24H PO SCH (09:20)
[2018-08-09] MEDS: DOCUSATE 100 MG CAPSULE PO SCH (09:20)
[2018-08-09] MEDS: ALLOPURINOL 100 MG TABLET PO SCH (09:21)
[2018-08-09] MEDS: DULOXETINE 30 MG CAPSULE.DR PO SCH (09:24)
[2018-08-09] MEDS: MONTELUKAST 10 MG TABLET PO SCH (09:24)
[2018-08-09] MEDS: HYDROcodone/APAP 5/325 TABLET PO PRN ×2 (09:24→15:00)
[2018-08-09] MEDS: THIAMINE 100MG TABLET PO SCH ×2 (09:24→20:05)
[2018-08-09] MEDS: ASPIRIN 325 MG TABLET PO SCH (09:24)
[2018-08-09] MEDS: PRAMIPEXOLE 0.125MG TABLET PO SCH (09:24)
[2018-08-09] MEDS: MULTIVITAMIN 1 TABLET PO SCH (09:26)
[2018-08-09] MEDS ORDERED: AMIODARONE 900 MG in DEXTROSE 5% 482 ML IV PRN (10:00)
[2018-08-09] MEDS ORDERED: AMIODARONE 50 MG/ML, 3ML IVPush STA (11:40)
[2018-08-09] MEDS ORDERED: [UNRECOGNIZED DRUG - REMARK] PER MD PRN (12:00)
[2018-08-09] MEDS ORDERED: AMIODARONE 150 MG in DEXTROSE 5% 100 ML IV ONE (12:30)
[2018-08-09] MEDS ORDERED: POTASSIUM CHLORIDE 20 MEQ TAB.ER.PRT PO ONE (12:30)
[2018-08-09] MEDS: LABETALOL 5MG/ML, 20ML IVPush PRN (16:39)
[2018-08-09] MEDS ORDERED: METOPROLOL TARTRATE 25 MG TABLET PO SCH (18:00)
[2018-08-09] MEDS ORDERED: DILTIAZEM 5 MG/ML, 5ML IVPush PRN (18:00)
[2018-08-09] MEDS: DIVALPROEX 500 MG TAB.ER.24H PO SCH (20:05)
[2018-08-10 00:45] VITALS: BP 165/78
[2018-08-10] MEDS: HYDROcodone/APAP 5/325 TABLET PO PRN ×5 (01:15→22:40)
[2018-08-10 06:18] LABS: ANION GAP 8 mmol/L (5-15); CALCIUM 9.8 mg/dL (8.5-10.1); CHLORIDE 106 mmol/L (98-107)
[2018-08-10 06:19] LABS: BASOPHILS # (AUTO) 0.05 x10^3/uL (0-0.1); BASOPHILS % (AUTO) 0 % (0-1); EOSINOPHILS # (AUTO) 0.01 x10^3/uL (0-0.4); EOSINOPHILS % (AUTO) 0 % (1-7); LYMPHOCYTES # (AUTO) 2.14 x10^3/uL (1-3.4); LYMPHOCYTES % (AUTO) 18 % (22-44); MD NO; MEAN CORPUSCULAR HEMOGLOBIN 30.5 pg (27.5-34.5); MEAN CORPUSCULAR HGB CONC 32.7 g/dL (33.2-36.2); MEAN CORPUSCULAR VOLUME 93.1 fL (81-97); MEAN PLATELET VOLUME 7.1 fL (7.4-10.4); MONOCYTES # (AUTO) 1.01 x10^3/uL (0.2-0.8); MONOCYTES % (AUTO) 8 % (2-9); NEUTROPHILS # (AUTO) 8.91 x10^3/uL (1.8-6.8); NEUTROPHILS % (AUTO) 74 % (42-75); PLATELET COUNT 609 x10^3/uL (130-400); RED BLOOD COUNT 4.76 x10^6/uL (4.38-5.82); RED CELL DISTRIBUTION WIDTH 15.4 % (9.4-14.8)
[2018-08-10 07:25] VITALS: BP 128/85
[2018-08-10] MEDS: ALLOPURINOL 100 MG TABLET PO SCH (09:13)
[2018-08-10] MEDS: MONTELUKAST 10 MG TABLET PO SCH (09:13)
[2018-08-10] MEDS: PRAMIPEXOLE 0.125MG TABLET PO SCH (09:13)
[2018-08-10] MEDS: SODIUM CHLORIDE FLUSH 10ML SYR IVF SCH (09:14)
[2018-08-10] MEDS: DULOXETINE 30 MG CAPSULE.DR PO SCH (09:14)
[2018-08-10] MEDS: ASPIRIN 325 MG TABLET PO SCH (09:14)
[2018-08-10] MEDS: DOCUSATE 100 MG CAPSULE PO SCH (09:14)
[2018-08-10] MEDS: MULTIVITAMIN 1 TABLET PO SCH (09:14)
[2018-08-10] MEDS: THIAMINE 100MG TABLET PO SCH ×2 (09:14→20:19)
[2018-08-10] MEDS: TAMSULOSIN 0.4 MG CAP.ER.24H PO SCH (09:14)
[2018-08-10] MEDS: DILTIAZEM 240 MG CAP.ER.24H PO SCH (09:20)
[2018-08-10 09:50] VITALS: BP 172/98
[2018-08-10 11:31] VITALS: BP 185/100
[2018-08-10] MEDS ORDERED: LABETALOL 5 MG/ML SYRINGE IVPush PRN (12:00)
[2018-08-10] MEDS ORDERED: METOPROLOL TARTRATE 25 MG TABLET PO SCH (12:00)
[2018-08-10] MEDS ORDERED: METOPROLOL TARTRATE 25 MG TABLET ONE (12:15)
[2018-08-10 12:55] VITALS: BP 163/96
[2018-08-10 19:50] VITALS: BP 152/75
[2018-08-10] MEDS: METOPROLOL TARTRATE 25 MG TABLET PO SCH (20:18)
[2018-08-10] MEDS: DIVALPROEX 500 MG TAB.ER.24H PO SCH (20:19)
[2018-08-11] VITALS (7 sets, daily range): BP systolic 123–178; BP diastolic 71–89
[2018-08-11 05:05] LABS: MEAN CORPUSCULAR HEMOGLOBIN 30.6 pg (27.5-34.5); MEAN CORPUSCULAR HGB CONC 32.5 g/dL (33.2-36.2); MEAN PLATELET VOLUME 7.1 fL (7.4-10.4); PLATELET COUNT 677 x10^3/uL (130-400); RED BLOOD COUNT 4.18 x10^6/uL (4.38-5.82); RED CELL DISTRIBUTION WIDTH 15.7 % (9.4-14.8)
[2018-08-11 05:15] LABS: CALCIUM 9.2 mg/dL (8.5-10.1); CHLORIDE 106 mmol/L (98-107); CREATININE 0.62 mg/dL (0.7-1.3)
[2018-08-11 05:24] LABS: ANION GAP 6 mmol/L (5-15)
[2018-08-11 05:46] LABS: BASOPHILS # (AUTO) 0.14 x10^3/uL (0-0.1); BASOPHILS % (AUTO) 1 % (0-1); EOSINOPHILS # (AUTO) 0.02 x10^3/uL (0-0.4); EOSINOPHILS % (AUTO) 0 % (1-7); LYMPHOCYTES # (AUTO) 2.14 x10^3/uL (1-3.4); LYMPHOCYTES % (AUTO) 16 % (22-44); MD SCAN; MONOCYTES # (AUTO) 0.63 x10^3/uL (0.2-0.8); MONOCYTES % (AUTO) 5 % (2-9); NEUTROPHILS # (AUTO) 10.22 x10^3/uL (1.8-6.8); NEUTROPHILS % (AUTO) 78 % (42-75)
[2018-08-11] MEDS: METOPROLOL TARTRATE 25 MG TABLET PO SCH ×2 (08:37→16:40)
[2018-08-11] MEDS: DILTIAZEM 240 MG CAP.ER.24H PO SCH (08:37)
[2018-08-11] MEDS: TAMSULOSIN 0.4 MG CAP.ER.24H PO SCH (08:37)
[2018-08-11] MEDS: THIAMINE 100MG TABLET PO SCH ×2 (08:38→20:26)
[2018-08-11] MEDS: ALLOPURINOL 300 MG TABLET PO SCH (08:38)
[2018-08-11] MEDS: PRAMIPEXOLE 0.125MG TABLET PO SCH (08:38)
[2018-08-11] MEDS: DOCUSATE 100 MG CAPSULE PO SCH (08:38)
[2018-08-11] MEDS: HYDROcodone/APAP 5/325 TABLET PO PRN ×4 (08:38→20:43)
[2018-08-11] MEDS: DULOXETINE 30 MG CAPSULE.DR PO SCH (08:38)
[2018-08-11] MEDS: MONTELUKAST 10 MG TABLET PO SCH (08:38)
[2018-08-11] MEDS: ASPIRIN 325 MG TABLET PO SCH (08:38)
[2018-08-11] MEDS: MULTIVITAMIN 1 TABLET PO SCH (11:57)
[2018-08-11] MEDS: GABAPENTIN 100 MG CAPSULE PO SCH ×2 (15:16→20:26)
[2018-08-11] MEDS: DIVALPROEX 500 MG TAB.ER.24H PO SCH (20:26)
[2018-08-12 03:39] VITALS: BP 168/82
[2018-08-12] MEDS: HYDROcodone/APAP 5/325 TABLET PO PRN ×4 (04:05→17:47)
[2018-08-12] MEDS: METOPROLOL TARTRATE 25 MG TABLET PO SCH ×2 (05:15→17:47)
[2018-08-12 07:44] VITALS: BP 190/83
[2018-08-12] MEDS: ASPIRIN 325 MG TABLET PO SCH (09:00)
[2018-08-12] MEDS: DULOXETINE 30 MG CAPSULE.DR PO SCH (09:00)
[2018-08-12] MEDS: GABAPENTIN 100 MG CAPSULE PO SCH (09:00)
[2018-08-12] MEDS: TAMSULOSIN 0.4 MG CAP.ER.24H PO SCH (09:00)
[2018-08-12] MEDS: ALLOPURINOL 300 MG TABLET PO SCH (09:00)
[2018-08-12] MEDS: PRAMIPEXOLE 0.125MG TABLET PO SCH (09:00)
[2018-08-12] MEDS: THIAMINE 100MG TABLET PO SCH (09:01)
[2018-08-12] MEDS: DILTIAZEM 240 MG CAP.ER.24H PO SCH (09:01)
[2018-08-12] MEDS: DOCUSATE 100 MG CAPSULE PO SCH (09:01)
[2018-08-12] MEDS: MONTELUKAST 10 MG TABLET PO SCH (09:01)
[2018-08-12] MEDS: MULTIVITAMIN 1 TABLET PO SCH (09:01)
[2018-08-12] MEDS ORDERED: PRED10TA PO (09:41)
[2018-08-12] MEDS ORDERED: ALLO300T PO (09:41)
[2018-08-12] MEDS ORDERED: TAMS-11 PO (09:41)
[2018-08-12] MEDS ORDERED: THIA100T67 PO (09:41)
[2018-08-12] MEDS ORDERED: DILT240C55 PO (09:41)
[2018-08-12] MEDS ORDERED: METO50TA4 PO (09:41)
[2018-08-12] MEDS ORDERED: GABA-826 PO (09:41)
[2018-08-12] MEDS ORDERED: LISINOPRIL 5 MG TABLET PO SCH (10:00)
[2018-08-12 10:51] VITALS: BP 144/80
[2018-08-12 13:15] VITALS: BP 165/97
[2018-08-12 15:15] VITALS: BP 165/84
== END 2018-08-12 18:13 | disposition home or self-care (01) | DRG 500 ==
LOC: ED 17:15 → EDIP 19:40 → CCU 21:05 → 5SO 08-04 17:59 → CCU 08-07 12:40 → 5SO 08-09 15:34
PROVIDERS: ADMIT Internal Medicine; ATTEND Internal Medicine
PROC: 5A1935Z Respiratory Ventilation, Less than 24 Consecutive Hours (ICD-10-PCS; 2018-08-02)
PROC: 0BH17EZ Insertion of Endotracheal Airway into Trachea, Via Natural or Artificial Opening (ICD-10-PCS; 2018-08-02)
PROC: 0RJN3ZZ Inspection of Right Wrist Joint, Percutaneous Approach (ICD-10-PCS; 2018-08-06)
PROC: 0R9P3ZZ Drainage of Left Wrist Joint, Percutaneous Approach (ICD-10-PCS; 2018-08-06)
PROC: 0RBP0ZZ Excision of Left Wrist Joint, Open Approach (ICD-10-PCS; 2018-08-07)
PROC: 0J9H0ZZ Drainage of Left Lower Arm Subcutaneous Tissue and Fascia, Open Approach (ICD-10-PCS; 2018-08-07)
PROC: 0J9G0ZZ Drainage of Right Lower Arm Subcutaneous Tissue and Fascia, Open Approach (ICD-10-PCS; 2018-08-07)
PROC: 0RBN0ZZ Excision of Right Wrist Joint, Open Approach (ICD-10-PCS; principal; 2018-08-07 08:30)
DX: M10.9 Gout, unspecified (principal); G93.41 Metabolic encephalopathy; J96.00 Acute respiratory failure, unspecified whether with hypoxia or hypercapnia; E87.0 Hyperosmolality and hypernatremia; E87.1 Hypo-osmolality and hyponatremia; E87.3 Alkalosis; F05 Delirium due to known physiological condition; I47.1 Supraventricular tachycardia; I82.612 Acute embolism and thrombosis of superficial veins of left upper extremity; L03.90 Cellulitis, unspecified; Z99.11 Dependence on respirator [ventilator] status; F10.231 Alcohol dependence with withdrawal delirium; I80.8 Phlebitis and thrombophlebitis of other sites; M19.031 Primary osteoarthritis, right wrist; D63.8 Anemia in other chronic diseases classified elsewhere; E87.6 Hypokalemia; M19.90 Unspecified osteoarthritis, unspecified site; F12.90 Cannabis use, unspecified, uncomplicated; F31.9 Bipolar disorder, unspecified; G25.81 Restless legs syndrome; G89.29 Other chronic pain; G40.909 Epilepsy, unspecified, not intractable, without status epilepticus; G62.9 Polyneuropathy, unspecified; K57.90 Diverticulosis of intestine, part unspecified, without perforation or abscess without bleeding; I10 Essential (primary) hypertension; I48.91 Unspecified atrial fibrillation; R33.9 Retention of urine, unspecified; Z96.653 Presence of artificial knee joint, bilateral; J45.909 Unspecified asthma, uncomplicated; M06.9 Rheumatoid arthritis, unspecified; N20.0 Calculus of kidney; Z79.899 Other long term (current) drug therapy; Z82.49 Family history of ischemic heart disease and other diseases of the circulatory system; Z98.1 Arthrodesis status; Z87.01 Personal history of pneumonia (recurrent)
CPT/HCPCS: 36415; 36600; 51702; 73110; 74018; 84145; 99285; J3490; J7620; 20606; 70450; 70491; 71045; 72156; 74177; 80048; 80053; 80061; 80164; 80307; 81001; 82140; 82550; 82803; 82962; 83036; 83605; 83735; 84439; 84443; 84478; 84484; 84550; 85025; 85610; 85651; 85810; 86140; 87040; 87070; 87075; 87081; 87205; 89050; 89060; 93005; 93306; 93970; 94002; 94003; 94640; 95819; A9585; G0378; J0690; J0696; J0878; J1170; J2020; J2185; J2250; J2543; J2704; J3010; J3411; J3486; Q9967; J0282; J0330; J0360; J1160; J1200; J2060; J7030; J7060; J7512

== ENCOUNTER 2019-11-25 14:48 | Emergency (ER) | payer OTHER ==
[~2019-11-25] VITALS: Ht 172.7 cm; Wt 100.0 kg
[~2019-11-25 14:48] MED LIST changes: +ALLO300T PO; +CYCL-259 PO; -DILT180C PO; +DILT180C76 PO; +DILT240C55 PO; +DILT240T3 PO; +DOCU100T3 PO; +DOXY100T PO; +DULO30CA2 PO; -ETOMIDATE 40 MG/20 ML ONE; +INDO50CA15 PO; -INDO50CA5 PO; +METO50TA4 PO; -MIDAZOLAM 1 MG/ML, 5ML ONE; +OXYC-302 PO; +PRAM0.12 PO; -PROPOFOL 10 MG/ML, 100ML IV ONE; -PROPOFOL 10 MG/ML, 20ML ONE; -SUCCINYLCHOLINE 20 MG/ML, 10ML ONE; +TAMS-11 PO; +THIA100T67 PO; +TRAZ-175 PO
[2019-11-25] MEDS ORDERED: [UNRECOGNIZED DRUG - CODE] PO (15:00)
[2019-11-25 15:32] LABS: ALANINE AMINOTRANSFERASE 23 U/L (12-78); ALBUMIN 3.1 g/dL (3.4-5.0); ANION GAP 9 mmol/L (5-15); CALCIUM 9.6 mg/dL (8.5-10.1); CHLORIDE 100 mmol/L (98-107); CREATININE 1.14 mg/dL (0.7-1.3)
[2019-11-25 15:35] LABS: ALKALINE PHOSPHATASE 67 U/L (45-117); BILIRUBIN,TOTAL 0.5 mg/dL (0.2-1.0); TOTAL PROTEIN 6.8 g/dL (6.4-8.2)
--- NOTE | 2019-11-25 15:56 | NUR ---
PHONE CALL RECEIVED FROM PTS SPOUSE, SHE STATES SHE WILL PICK HIM UP.
[2019-11-25 17:20] VITALS: BP 102/80
--- NOTE | 2019-11-25 17:48 | NUR ---
PT STATES THAT HE WILL TAKE HIS OWN TAXI HOME. REFUSING TAXI VOUCHER TO DETOX FACILITY. PT AMBULATED TO WHEELCHAIR W/ A STEADY GAIT. VERBALIZED UNDERSTANDING OF DC INSTRUCTIONS. RESP EVEN AND UNLABORED, ARABELLA. WHEELED TO [facility].
== END 2019-11-25 17:50 | disposition home or self-care (01) ==
LOC: ED 16:14
DX: S09.90XA Unspecified injury of head, initial encounter (principal); Y90.0 Blood alcohol level of less than 20 mg/100 ml; I10 Essential (primary) hypertension; F10.10 Alcohol abuse, uncomplicated
CPT/HCPCS: 36415; 70450; 72125; 80053; 93005; 99285

== ENCOUNTER 2020-04-24 09:37 | Emergency (ER) | payer OTHER ==
[~2020-04-24] VITALS: Ht 172.7 cm; Wt 100.0 kg
[~2020-04-24 09:37] MED LIST changes: -CYCL-259 PO; +CYCL10TA2 PO; -FOLI-17 PO; +FOLI1TAB32 PO; +HYDR-1067 PO; -HYDR-3240 PO; -LISI40TA PO; +LISI40TA9 PO; -OXYC-302 PO; +OXYC1TAB14 PO; +[UNRECOGNIZED DRUG - CODE] PO
--- NOTE | 2020-04-24 09:50 | NUR ---
bib AMB from home with c/o not being able to ambulate r/t weakness and severe sciatic pain x2 weeks. intermittent loss of bowel and bladder "not all the time" pt placed in gown. hx of htn and currently hypertensive at 147/114
[2020-04-24] MEDS ORDERED: DIAZEPAM 5 MG TABLET PO ONE (10:30)
[2020-04-24] MEDS ORDERED: OXYcodone/APAP 5/325MG TABLET PO ONE (10:30)
--- NOTE | 2020-04-24 10:30 | NUR ---
pt taken to xr
[2020-04-24 10:35] LABS: ALBUMIN 3.4 g/dL (3.4-5.0); ANION GAP 6 mmol/L (5-15); CALCIUM 9.7 mg/dL (8.5-10.1); CHLORIDE 109 mmol/L (98-107); CREATININE 1.12 mg/dL (0.7-1.3)
[2020-04-24 10:43] LABS: BASOPHILS % (AUTO) 0 % (0-1); EOSINOPHILS % (AUTO) 1 % (1-7); LYMPHOCYTES % (AUTO) 24 % (22-44); MEAN CORPUSCULAR HEMOGLOBIN 29.2 pg (27.5-34.5); MEAN CORPUSCULAR HGB CONC 33.8 g/dL (33.2-36.2); MEAN PLATELET VOLUME 7.5 fL (7.4-10.4); MONOCYTES % (AUTO) 10 % (2-9); NEUTROPHILS % (AUTO) 65 % (42-75); PLATELET COUNT 271 x10^3/uL (130-400); RED BLOOD COUNT 5.83 x10^6/uL (4.38-5.82); RED CELL DISTRIBUTION WIDTH 14.4 % (9.4-14.8)
--- NOTE | 2020-04-24 10:44 | NUR ---
returns from xr
[2020-04-24 10:56] LABS: MD NO
[2020-04-24 11:39] LABS: MICROSCOPIC AUTO
[2020-04-24 12:48] VITALS: BP 139/72
--- NOTE | 2020-04-24 13:09 | NUR ---
pt wanted to be pushed to waiting room in a wheelchair. pt stated he would call his own cab.
== END 2020-04-24 13:08 | disposition home or self-care (01) ==
LOC: ED 10:10
DX: M51.36 Other intervertebral disc degeneration, lumbar region (principal); M54.42 Lumbago with sciatica, left side; G89.29 Other chronic pain; I10 Essential (primary) hypertension; J45.909 Unspecified asthma, uncomplicated; M10.9 Gout, unspecified
CPT/HCPCS: 36415; 72110; 80048; 81001; 82040; 85025; 99284

== ENCOUNTER 2020-09-28 18:09 | Emergency (ER) | payer OTHER ==
[~2020-09-28] VITALS: Ht 172.7 cm; Wt 105.0 kg
[~2020-09-28 18:09] MED LIST changes: -HYDR-1067 PO; +HYDR-2214 PO; +MULT-482 PO; -MULT-750 PO
--- NOTE | 2020-09-28 18:19 | NUR ---
PT BIB EMS. PER EMS THE HOUSE WAS VERY UNKEPT AND HAD CAT FECES ALL OVER THE HOUSE WITH TRASH STAKED TO THE CEILING. THE PIPE JEEPER WERE CALLED AND AN EPS CASE IS BEING CONDUCTED. PT CALLED 911 TODAY CO A DRY COUGH, TROUBLE WALKING, AND CONSTIPATION X 2 WEEKS. PT RESTING IN [facility]. CONNECTED TO MONITORS.
--- NOTE | 2020-09-28 18:48 | NUR ---
PT TO CT AT THIS TIME
[2020-09-28] MEDS ORDERED: SODIUM CHLORIDE FLUSH 10ML SYR IVF ONE (19:00)
[2020-09-28 19:29] LABS: BASOPHILS % (AUTO) 1 % (0-1); EOSINOPHILS % (AUTO) 1 % (1-7); LYMPHOCYTES % (AUTO) 38 % (22-44); MEAN CORPUSCULAR HEMOGLOBIN 30.9 pg (27.5-34.5); MEAN CORPUSCULAR HGB CONC 34.3 g/dL (33.2-36.2); MEAN PLATELET VOLUME 7.5 fL (7.4-10.4); MONOCYTES % (AUTO) 14 % (2-9); NEUTROPHILS % (AUTO) 46 % (42-75); PLATELET COUNT 228 x10^3/uL (130-400); RED CELL DISTRIBUTION WIDTH 15.8 % (9.4-14.8)
[2020-09-28 19:31] LABS: MICROSCOPIC INDICATED
[2020-09-28 19:40] LABS: ALANINE AMINOTRANSFERASE 7 U/L (12-78); ALBUMIN 3.1 g/dL (3.4-5.0); ANION GAP 6 mmol/L (5-15); CALCIUM 8.9 mg/dL (8.5-10.1); CHLORIDE 107 mmol/L (98-107); CREATININE 1.09 mg/dL (0.7-1.3)
[2020-09-28 19:43] LABS: ALKALINE PHOSPHATASE 89 U/L (45-117); BILIRUBIN,TOTAL 0.2 mg/dL (0.2-1.0); TOTAL PROTEIN 7.2 g/dL (6.4-8.2)
[2020-09-28 19:52] VITALS: BP 130/92
== END 2020-09-28 20:23 | disposition home or self-care (01) ==
LOC: ED 18:42
DX: R42 Dizziness and giddiness (principal); R53.1 Weakness; R94.31 Abnormal electrocardiogram [ECG] [EKG]; J45.909 Unspecified asthma, uncomplicated
CPT/HCPCS: 36415; 70450; 74022; 80053; 81001; 85025; 93005; 99285

== ENCOUNTER 2020-09-30 08:06 | Emergency (ER) | payer OTHER ==
[~2020-09-30] VITALS: Ht 180.3 cm; Wt 100.0 kg
[2020-09-30] MEDS ORDERED: ACETAMINOPHEN 500 MG TABLET PO ONE (09:00)
[2020-09-30] MEDS ORDERED: KETOROLAC 30 MG/1 ML IM ONE (09:00)
[2020-09-30] MEDS ORDERED: KETOROLAC 60 MG/2 ML ONE (09:00)
[2020-09-30] MEDS ORDERED: ACETAMINOPHEN 500 MG TABLET ONE (09:01)
[2020-09-30 09:30] LABS: BASOPHILS % (AUTO) 1 % (0-1); EOSINOPHILS % (AUTO) 1 % (1-7); LYMPHOCYTES % (AUTO) 29 % (22-44); MEAN CORPUSCULAR HEMOGLOBIN 31.3 pg (27.5-34.5); MEAN CORPUSCULAR HGB CONC 34.3 g/dL (33.2-36.2); MEAN PLATELET VOLUME 7.7 fL (7.4-10.4); MONOCYTES % (AUTO) 17 % (2-9); NEUTROPHILS % (AUTO) 53 % (42-75); PLATELET COUNT 204 x10^3/uL (130-400); RED BLOOD COUNT 5.35 x10^6/uL (4.38-5.82); RED CELL DISTRIBUTION WIDTH 15.6 % (9.4-14.8)
[2020-09-30 09:39] LABS: ALBUMIN 3.2 g/dL (3.4-5.0); CALCIUM 9.6 mg/dL (8.5-10.1)
[2020-09-30 09:46] LABS: ALANINE AMINOTRANSFERASE 9 U/L (12-78); ALKALINE PHOSPHATASE 91 U/L (45-117); BILIRUBIN,TOTAL 0.4 mg/dL (0.2-1.0); CREATININE 1.07 mg/dL (0.7-1.3); TOTAL PROTEIN 7.2 g/dL (6.4-8.2)
[2020-09-30 10:08] LABS: ANION GAP 7 mmol/L (5-15); CHLORIDE 105 mmol/L (98-107)
[2020-09-30] MEDS ORDERED: ASPIRIN 81 MG TABLET CHEW PO ONE (11:00)
[2020-09-30] MEDS ORDERED: ASPIRIN 81 MG TABLET CHEW ONE (11:02)
[2020-09-30 11:18] LABS: MICROSCOPIC AUTO
[2020-09-30 12:18] VITALS: BP 154/88
== END 2020-09-30 14:35 | disposition home or self-care (01) ==
LOC: ED 08:27 → EDIP 11:04 → UNDOADMIN 11:04 → EDIP 14:35 → UNDODISIN 14:35
DX: M54.5 Low back pain (principal); G89.29 Other chronic pain; R07.89 Other chest pain; R42 Dizziness and giddiness; R94.31 Abnormal electrocardiogram [ECG] [EKG]; I10 Essential (primary) hypertension; J45.909 Unspecified asthma, uncomplicated; M10.9 Gout, unspecified
CPT/HCPCS: 36415; 74022; 80053; 81001; 84484; 85025; 93005; 96372; 99285; J1885

== ENCOUNTER 2020-10-29 16:48 | Observation (INO) | payer OTHER ==
[~2020-10-29] VITALS: Ht 172.7 cm; Wt 112.9 kg
[~2020-10-29 16:48] MED LIST changes: +OXYC1TAB12 PO; -OXYC1TAB14 PO
--- NOTE | 2020-10-29 17:17 | NUR ---
PT PRESENTS TO ED WITH WORSENING CHR BACK PAIN WITH LLE SCIATICA X6-7 WKS, MULT GFL D/T DIZZINESS X1 MO. NEURO INTACT, PT A&O, RESPS EVEN AND UNLABORED, VSS, NADN.
[2020-10-29] MEDS ORDERED: ONDANSETRON 2MG/ML, 2ML ONE (17:36)
[2020-10-29] MEDS ORDERED: MORPHINE SULFATE 4 MG/ML, 1ML ONE (17:37)
[2020-10-29] MEDS ORDERED: MORPHINE SULFATE 4 MG/ML, 1ML IVPush PRN (18:00)
[2020-10-29] MEDS ORDERED: ONDANSETRON 2MG/ML, 2ML IVPush ONE (18:00)
[2020-10-29] MEDS ORDERED: SODIUM CHLORIDE 0.9% 1,000ML IVBOLUS ONE (18:00)
[2020-10-29] MEDS ORDERED: SODIUM CHLORIDE FLUSH 10ML SYR IVF ONE (18:00)
--- NOTE | 2020-10-29 18:08 | NUR ---
PIV PLACED VIA US, MEDS GIVEN PER ORDER, FLUIDS INFUSING, BLOOD DRAWN AND SENT TO LAB. PT A&O, RESPS EVEN AND UNLABORED, VSS, NADN.
--- NOTE | 2020-10-29 18:13 | NUR ---
PT TO RADIOLOGY
[2020-10-29 18:27] LABS: BASOPHILS % (AUTO) 1 % (0-1); EOSINOPHILS % (AUTO) 1 % (1-7); LYMPHOCYTES % (AUTO) 30 % (22-44); MEAN CORPUSCULAR HEMOGLOBIN 30.7 pg (27.5-34.5); MEAN CORPUSCULAR HGB CONC 33.7 g/dL (33.2-36.2); MEAN PLATELET VOLUME 8.2 fL (7.4-10.4); MONOCYTES % (AUTO) 11 % (2-9); NEUTROPHILS % (AUTO) 58 % (42-75); PLATELET COUNT 306 x10^3/uL (130-400); RED BLOOD COUNT 5.05 x10^6/uL (4.38-5.82); RED CELL DISTRIBUTION WIDTH 16.3 % (9.4-14.8)
[2020-10-29 18:28] LABS: ALANINE AMINOTRANSFERASE 7 U/L (12-78); ALBUMIN 3.2 g/dL (3.4-5.0); ANION GAP 7 mmol/L (5-15); CALCIUM 9.6 mg/dL (8.5-10.1); CHLORIDE 113 mmol/L (98-107); CREATININE 1.19 mg/dL (0.7-1.3)
[2020-10-29 18:33] LABS: ALKALINE PHOSPHATASE 79 U/L (45-117); BILIRUBIN,TOTAL 0.5 mg/dL (0.2-1.0); TOTAL PROTEIN 7.4 g/dL (6.4-8.2); TROPONIN I 0.062 ng/mL (0.000-0.045)
[2020-10-29] MEDS ORDERED: ASPIRIN 325 MG TABLET ONE (18:50)
[2020-10-29] MEDS ORDERED: ASPIRIN 325 MG TABLET PO ONE (19:00)
--- NOTE | 2020-10-29 19:04 | NUR ---
MD aware of elevated troponin, med and admit orders received. pt updated with poc.
--- NOTE | 2020-10-29 19:10 | NUR ---
throughput rn: [facility], [facility] transfer center separator operator, Kelsey, [facility] will call for report and let us know if they are accepting
[2020-10-29 19:24] LABS: MICROSCOPIC AUTO
--- NOTE | 2020-10-29 20:18 | NUR ---
pt to be transferred to [facility] d/t insurance. pt aware of poc.
[2020-10-29] MEDS ORDERED: CEFTRIAXONE 1,000 MG in DEXTROSE 5% 50 ML IVPB ONE (21:00)
--- NOTE | 2020-10-29 21:00 | NUR ---
Per [facility] Marquez refusing pt at this time. plan to admit pt to floor, pt updated on poc
--- NOTE | 2020-10-29 21:12 | NUR ---
pt to radiology at this time
--- NOTE | 2020-10-29 22:26 | NUR ---
throughput rn: pt refused by alex[facility] despite insurnace, refused by Dr younger and Kelsey at call center. sheets faxed.
--- NOTE | 2020-10-29 22:26 | NUR ---
report called to receiving maurice Rocha
[2020-10-29] MEDS ORDERED: hydrALAzine 20 MG/ML, 1ML IVPush PRN (22:30)
[2020-10-29] MEDS ORDERED: D5%-0.45NACL+KCL 20MEQ 1,000 ML IV SCH (22:30)
[2020-10-29] MEDS ORDERED: POLYETHYLENE GLYCOL 17 GM PACKET PO PRN (22:30)
[2020-10-29] MEDS ORDERED: ENALAPRILAT 1.25 MG/ML, 2ML IVPush PRN (22:30)
[2020-10-29] MEDS ORDERED: ONDANSETRON 2MG/ML, 2ML IVPush PRN (22:30)
[2020-10-29] MEDS ORDERED: BISACODYL 10 MG SUPP PR PRN (22:30)
[2020-10-29] MEDS ORDERED: ONDANSETRON ODT 4 MG PO PRN (22:30)
[2020-10-29] MEDS ORDERED: METHOCARBAMOL 500 MG TABLET PO PRN (22:30)
[2020-10-29] MEDS ORDERED: ACETAMINOPHEN 325 MG TABLET PO SCH (22:30)
[2020-10-29] MEDS ORDERED: AMLO-210 PO (22:48)
[2020-10-29] MEDS ORDERED: PRAM0.125 PO (22:48)
[2020-10-29 22:54] VITALS: BP 156/95
[2020-10-29] MEDS ORDERED: TRAZODONE 100MG TABLET PO PRN (23:00)
[2020-10-29] MEDS ORDERED: ENOXAPARIN 40 MG/0.4 ML SQ SCH (23:30)
[2020-10-29] MEDS: GABAPENTIN 100 MG CAPSULE PO SCH (23:50)
[2020-10-29] MEDS: LIDODERM 5% PATCH TD SCH (23:50)
[2020-10-30] VITALS: BP 156/95
[2020-10-30 01:15] LABS: TROPONIN I 0.058 ng/mL (0.000-0.045)
[2020-10-30] MEDS: OXYcodone IR 5MG TABLET PO PRN ×5 (03:57→20:54)
[2020-10-30 05:35] LABS: MEAN CORPUSCULAR HEMOGLOBIN 30.8 pg (27.5-34.5); MEAN CORPUSCULAR HGB CONC 33.4 g/dL (33.2-36.2); MEAN PLATELET VOLUME 8.1 fL (7.4-10.4); PLATELET COUNT 254 x10^3/uL (130-400); RED BLOOD COUNT 4.42 x10^6/uL (4.38-5.82); RED CELL DISTRIBUTION WIDTH 16.3 % (9.4-14.8)
[2020-10-30 05:57] LABS: EOS#(MANUAL) 0.06 x10^3/uL (0.0-0.4); EOS% (MANUAL) 1 % (1-7); LYMPH#(MANUAL) 2.18 x10^3/uL (1-3.4); LYMPHS% (MANUAL) 34 % (22-44); MONOS#(MANUAL) 0.51 x10^3/uL (0.3-2.7); MONOS% (MANUAL) 8 % (2-9); REACTIVE LYMPHS # (MANUAL) 1.02 x10^3/uL (0-0); REACTIVE LYMPHS % (MANUAL) 16 % (0-0); SEG#(MANUAL) 2.62 x10^3/uL (1.8-6.8); SEGS% (MANUAL) 41 % (42-75)
[2020-10-30 06:01] LABS: <PLATELET ESTIMATE> ADEQUATE; <PLT MORPHOLOGY> NORMAL PLT MORPH; <RBC MORPHOLOGY> NORMAL
[2020-10-30 06:36] LABS: CALCIUM 8.7 mg/dL (8.5-10.1); CREATININE 1.04 mg/dL (0.7-1.3); TROPONIN I 0.068 ng/mL (0.000-0.045)
[2020-10-30 06:58] LABS: ANION GAP 5 mmol/L (5-15); CHLORIDE 110 mmol/L (98-107)
[2020-10-30] MEDS: [UNRECOGNIZED DRUG - OTHER] MC SCH ×2 (09:00→16:32)
[2020-10-30] MEDS ORDERED: POTASSIUM CHLORIDE 20 MEQ TAB.ER.PRT PO ONE (09:00)
[2020-10-30 09:56] VITALS: BP 135/89
[2020-10-30] MEDS: ACETAMINOPHEN 500 MG TABLET PO SCH ×3 (10:08→20:54)
[2020-10-30] MEDS: AMLODIPINE 5 MG TABLET PO SCH (10:08)
[2020-10-30] MEDS: HEPARIN 5,000 UNITS/ML, 1ML SQ SCH ×2 (10:09→16:19)
[2020-10-30] MEDS: GABAPENTIN 100 MG CAPSULE PO SCH ×3 (10:09→20:54)
[2020-10-30] MEDS: ALLOPURINOL 300 MG TABLET PO SCH (10:09)
[2020-10-30] MEDS: SENNA/DOCUSATE TABLET PO SCH (10:10)
[2020-10-30 11:30] VITALS: BP 134/79
[2020-10-30 11:32] VITALS: BP_SYST 135; BP_SYST 138; BP_DIAS 85; BP_DIAS 94
[2020-10-30] MEDS ORDERED: AMLO-210 PO (13:30)
[2020-10-30] MEDS ORDERED: LOSA25TA25 PO (13:30)
[2020-10-30 14:51] VITALS: BP 117/74
[2020-10-30] MEDS ORDERED: DIVALPROEX 500 MG TAB.ER.24H PO SCH (21:00)
[2020-10-30] MEDS ORDERED: CEFTRIAXONE 1,000 MG in DEXTROSE 5% 50 ML IVPB SCH (21:00)
[2020-10-30] MEDS ORDERED: LOSARTAN 25MG TABLET PO SCH (21:00)
[2020-10-30 21:28] VITALS: BP 144/84
[2020-10-31] MEDS: LIDODERM 5% PATCH TD SCH (00:15)
[2020-10-31] MEDS: [UNRECOGNIZED DRUG - OTHER] MC SCH ×3 (00:16→16:25)
[2020-10-31 00:23] VITALS: BP_SYST 91; BP_SYST 92; BP_DIAS 62
[2020-10-31] MEDS: HEPARIN 5,000 UNITS/ML, 1ML SQ SCH ×3 (01:09→17:00)
[2020-10-31] MEDS: KETOROLAC 30 MG/1 ML IV PRN ×2 (01:44→12:52)
[2020-10-31 05:38] LABS: BASOPHILS % (AUTO) 1 % (0-1); EOSINOPHILS % (AUTO) 3 % (1-7); LYMPHOCYTES % (AUTO) 51 % (22-44); MEAN CORPUSCULAR HEMOGLOBIN 30.5 pg (27.5-34.5); MEAN CORPUSCULAR HGB CONC 33.1 g/dL (33.2-36.2); MEAN PLATELET VOLUME 8.4 fL (7.4-10.4); MONOCYTES % (AUTO) 12 % (2-9); NEUTROPHILS % (AUTO) 34 % (42-75); PLATELET COUNT 238 x10^3/uL (130-400); RED BLOOD COUNT 4.37 x10^6/uL (4.38-5.82); RED CELL DISTRIBUTION WIDTH 15.7 % (9.4-14.8)
[2020-10-31 05:49] LABS: CALCIUM 8.2 mg/dL (8.5-10.1); CREATININE 0.97 mg/dL (0.7-1.3)
[2020-10-31 05:58] LABS: ANION GAP 5 mmol/L (5-15); CHLORIDE 106 mmol/L (98-107)
[2020-10-31 06:38] VITALS: BP 121/85
[2020-10-31] MEDS ORDERED: CEFD300C37 PO ×2 (08:33)
[2020-10-31 09:55] VITALS: BP 125/78
[2020-10-31] MEDS: AMLODIPINE 5 MG TABLET PO SCH (09:56)
[2020-10-31] MEDS: SENNA/DOCUSATE TABLET PO SCH (09:56)
[2020-10-31] MEDS: GABAPENTIN 100 MG CAPSULE PO SCH ×2 (09:56→17:09)
[2020-10-31] MEDS: ALLOPURINOL 300 MG TABLET PO SCH (09:56)
[2020-10-31] MEDS: ACETAMINOPHEN 500 MG TABLET PO SCH ×2 (09:56→17:09)
[2020-10-31 12:47] VITALS: BP 128/81
== END 2020-10-31 18:14 | disposition home or self-care (01) ==
LOC: ED 17:51 → 5SO 22:59
PROVIDERS: ADMIT Family Medicine; ATTEND Internal Medicine
DX: I95.1 Orthostatic hypotension (principal); R29.6 Repeated falls; I10 Essential (primary) hypertension; G89.29 Other chronic pain; M54.9 Dorsalgia, unspecified; R79.89 Other specified abnormal findings of blood chemistry; G62.9 Polyneuropathy, unspecified; M06.9 Rheumatoid arthritis, unspecified; M10.9 Gout, unspecified; F31.9 Bipolar disorder, unspecified; E66.9 Obesity, unspecified; G47.30 Sleep apnea, unspecified; M47.816 Spondylosis without myelopathy or radiculopathy, lumbar region; I21.A1 Myocardial infarction type 2; K59.09 Other constipation; M51.36 Other intervertebral disc degeneration, lumbar region; W18.30XA Fall on same level, unspecified, initial encounter; Y93.89 Activity, other specified; Y92.89 Other specified places as the place of occurrence of the external cause; Z79.899 Other long term (current) drug therapy; Z91.81 History of falling
CPT/HCPCS: 36415; 70450; 71045; 72110; 72131; 80048; 80053; 81001; 83735; 84443; 84484; 85025; 87086; 93005; 96361; 96365; 96366; 96367; 96372; 96375; 96376; 97162; 97166; 99285; G0378; J0696; J1644; J1650; J1885; J2270; J2405; J3480; J7030

== ENCOUNTER 2020-11-20 12:00 | Inpatient (IN) | payer OTHER ==
[~2020-11-20] VITALS: Ht 172.7 cm; Wt 106.5 kg
[~2020-11-20 12:00] MED LIST changes: +AMLO-210 PO; +LOSA25TA25 PO; +PRAM0.125 PO
--- NOTE | 2020-11-20 12:53 | NUR ---
ER AT [facility] WITH [facility] PATIENT-PATIENT TO LOBBY. WILL CLOSELY MONITOR AND PROVIDED WITH 2 GLASSES OF WATER
--- NOTE | 2020-11-20 16:49 | NUR ---
Pt walked back from triage.
--- NOTE | 2020-11-20 17:04 | NUR ---
PT PRESENTS TO ED, ARRIVING BY EMS WHO WAS CALLED PT IS UNABLE TO COMPLETE ADL'S SECONDARY TO LOWER EXTREMITY PAIN D/T SEVERE SCIATICA. PT STATES HIS SYMPTOMS HAVE BEEN ONGOING FOR MONTHS, REQUIRING HOSPITALIZATIONS AND SNF REHABS. PT STATES "I DO BETTER IN REHAB, BUT WHEN I GO HOME I GET WORSE." PT STATES HE IS INCONTINENT OF STOOL OR URINE, "BUT I KNOW I'M DOING IT." MD BABB, MERVIN NEAL AT BEDSIDE FOR INITIAL ASSESSMENT.
[2020-11-20] MEDS ORDERED: SODIUM CHLORIDE 0.9% 1,000ML IVBOLUS ONE (17:30)
[2020-11-20] MEDS ORDERED: KETOROLAC 30 MG/1 ML IVPush ONE (17:30)
[2020-11-20] MEDS ORDERED: KETOROLAC 30 MG/1 ML ONE (17:41)
[2020-11-20 17:48] LABS: BASOPHILS % (AUTO) 0 % (0-1); EOSINOPHILS % (AUTO) 0 % (1-7); LYMPHOCYTES % (AUTO) 18 % (22-44); MEAN CORPUSCULAR HEMOGLOBIN 31.2 pg (27.5-34.5); MEAN CORPUSCULAR HGB CONC 34.2 g/dL (33.2-36.2); MONOCYTES % (AUTO) 12 % (2-9); NEUTROPHILS % (AUTO) 69 % (42-75); PLATELET COUNT 318 x10^3/uL (130-400); RED BLOOD COUNT 5.01 x10^6/uL (4.38-5.82); RED CELL DISTRIBUTION WIDTH 15.1 % (9.4-14.8)
--- NOTE | 2020-11-20 18:00 | NUR ---
piv placed, pt medicated per emar, pt tolerating well. all monitors in place, nsr on panel monitor with no ectopy. call light in reach.
[2020-11-20 18:05] LABS: ALBUMIN 2.9 g/dL (3.4-5.0); ANION GAP 9 mmol/L (5-15); CALCIUM 9.3 mg/dL (8.5-10.1); CHLORIDE 106 mmol/L (98-107); CREATININE 1.36 mg/dL (0.7-1.3)
[2020-11-20 18:49] LABS: MICROSCOPIC INDICATED
--- NOTE | 2020-11-20 19:00 | NUR ---
report given to JANES Gabriel at bedside.
--- NOTE | 2020-11-20 19:54 | NUR ---
patient passed road test, ness STONE made aware
[2020-11-20] MEDS ORDERED: LIDODERM 5% PATCH TD ONE (20:00)
--- NOTE | 2020-11-20 20:02 | NUR ---
TP RN: CALLED AND SPOKE WITH JANES SWARTZ AT [facility]. PT. TO BE ADMITTED AT [facility] HAS NO BEDS AVAILABLE.
[2020-11-20] MEDS ORDERED: KETOROLAC 30 MG/1 ML IV PRN (20:30)
[2020-11-20] MEDS ORDERED: LIDODERM 5% PATCH TD PRN (20:30)
[2020-11-20] MEDS ORDERED: ACETAMINOPHEN 325 MG TABLET PO PRN (20:30)
--- NOTE | 2020-11-20 20:50 | NUR ---
ATTEMPTED REPORT TO ROLANDO MARRERO AT THIS TIME. RN UNABLE TO TAKE REPORT. RN TO CALL ER FOR REPORT SHORTLY
[2020-11-20 22:04] VITALS: BP 132/90
[2020-11-20] MEDS: SODIUM CHLORIDE FLUSH 10ML SYR IVF SCH (22:38)
[2020-11-20] MEDS: GABAPENTIN 100 MG CAPSULE PO SCH (22:39)
[2020-11-20] MEDS: TRAZODONE 100MG TABLET PO SCH (22:39)
[2020-11-20] MEDS: LOSARTAN 25MG TABLET PO SCH (22:39)
[2020-11-20] MEDS: DIVALPROEX 500 MG TAB.ER.24H PO SCH (22:39)
[2020-11-20] MEDS: HEPARIN 5,000 UNITS/ML, 1ML SQ SCH (22:39)
[2020-11-20] MEDS: THIAMINE 100MG TABLET PO SCH (22:39)
[2020-11-20] MEDS: AMLODIPINE 5 MG TABLET PO SCH (22:40)
[2020-11-20] MEDS: OXYcodone IR 5MG TABLET PO PRN (22:51)
[2020-11-21 00:01] VITALS: BP 107/70
[2020-11-21] MEDS: BISACODYL 10 MG SUPP PR PRN (00:25)
[2020-11-21] MEDS: OXYcodone IR 5MG TABLET PO PRN ×4 (04:16→21:11)
[2020-11-21 07:04] VITALS: BP 125/86
[2020-11-21] MEDS: DULOXETINE 30 MG CAPSULE.DR PO SCH (08:48)
[2020-11-21] MEDS: HEPARIN 5,000 UNITS/ML, 1ML SQ SCH ×2 (08:48→16:20)
[2020-11-21] MEDS: SODIUM CHLORIDE FLUSH 10ML SYR IVF SCH ×2 (08:48→20:51)
[2020-11-21] MEDS: TAMSULOSIN 0.4 MG CAP.ER.24H PO SCH ×3 (08:49→09:00)
[2020-11-21] MEDS: SENNA/DOCUSATE TABLET PO SCH (08:49)
[2020-11-21] MEDS: GABAPENTIN 100 MG CAPSULE PO SCH ×2 (08:49→20:53)
[2020-11-21] MEDS: MULTIVITAMIN 1 TABLET PO SCH (08:49)
[2020-11-21] MEDS: PRAMIPEXOLE 0.125MG TABLET PO SCH (08:50)
[2020-11-21] MEDS: THIAMINE 100MG TABLET PO SCH ×2 (08:50→20:53)
[2020-11-21] MEDS: ALLOPURINOL 300 MG TABLET PO SCH (08:50)
[2020-11-21] MEDS: MONTELUKAST 10 MG TABLET PO SCH (08:51)
[2020-11-21 14:07] VITALS: BP 118/77
[2020-11-21] MEDS ORDERED: GADOTERATE 10 MMOL/20ML SYR ONE (14:33)
[2020-11-21 19:19] VITALS: BP 106/72
[2020-11-21] MEDS: TRAZODONE 100MG TABLET PO SCH (20:53)
[2020-11-21] MEDS: DIVALPROEX 500 MG TAB.ER.24H PO SCH (20:53)
[2020-11-21] MEDS: LOSARTAN 25MG TABLET PO SCH (20:53)
[2020-11-21] MEDS: AMLODIPINE 5 MG TABLET PO SCH (20:53)
[2020-11-22] MEDS: HEPARIN 5,000 UNITS/ML, 1ML SQ SCH ×3 (00:45→16:43)
[2020-11-22] MEDS: ONDANSETRON ODT 4 MG PO PRN (00:47)
[2020-11-22 01:07] VITALS: BP 129/84
[2020-11-22] MEDS: OXYcodone IR 5MG TABLET PO PRN ×5 (01:22→20:51)
[2020-11-22 06:12] LABS: BASOPHILS % (AUTO) 1 % (0-1); EOSINOPHILS % (AUTO) 5 % (1-7); LYMPHOCYTES % (AUTO) 50 % (22-44); MEAN CORPUSCULAR HEMOGLOBIN 30.6 pg (27.5-34.5); MEAN CORPUSCULAR HGB CONC 33.5 g/dL (33.2-36.2); MEAN PLATELET VOLUME 7.9 fL (7.4-10.4); MONOCYTES % (AUTO) 11 % (2-9); NEUTROPHILS % (AUTO) 34 % (42-75); PLATELET COUNT 292 x10^3/uL (130-400); RED BLOOD COUNT 4.56 x10^6/uL (4.38-5.82); RED CELL DISTRIBUTION WIDTH 15.6 % (9.4-14.8)
[2020-11-22 06:23] LABS: CHLORIDE 103 mmol/L (98-107)
[2020-11-22 06:41] LABS: ANION GAP 7 mmol/L (5-15); CALCIUM 9.3 mg/dL (8.5-10.1); CREATININE 1.09 mg/dL (0.7-1.3)
[2020-11-22] MEDS: POLYETHYLENE GLYCOL 17 GM PACKET PO PRN (06:44)
[2020-11-22 07:56] VITALS: BP 113/77
[2020-11-22] MEDS: THIAMINE 100MG TABLET PO SCH ×2 (08:09→20:10)
[2020-11-22] MEDS: TAMSULOSIN 0.4 MG CAP.ER.24H PO SCH (08:09)
[2020-11-22] MEDS: DULOXETINE 30 MG CAPSULE.DR PO SCH (08:09)
[2020-11-22] MEDS: ALLOPURINOL 300 MG TABLET PO SCH (08:09)
[2020-11-22] MEDS: SENNA/DOCUSATE TABLET PO SCH (08:09)
[2020-11-22] MEDS: MULTIVITAMIN 1 TABLET PO SCH (08:09)
[2020-11-22] MEDS: GABAPENTIN 100 MG CAPSULE PO SCH ×2 (08:09→20:10)
[2020-11-22] MEDS: PRAMIPEXOLE 0.125MG TABLET PO SCH (08:09)
[2020-11-22] MEDS: MONTELUKAST 10 MG TABLET PO SCH (08:09)
[2020-11-22] MEDS: SODIUM CHLORIDE FLUSH 10ML SYR IVF SCH ×2 (08:10→20:10)
[2020-11-22 13:34] VITALS: BP 96/62
[2020-11-22 20:05] VITALS: BP 112/75
[2020-11-22] MEDS: AMLODIPINE 5 MG TABLET PO SCH (20:10)
[2020-11-22] MEDS: BISACODYL 10 MG SUPP PR PRN (20:10)
[2020-11-22] MEDS: DIVALPROEX 500 MG TAB.ER.24H PO SCH (20:10)
[2020-11-22] MEDS: TRAZODONE 100MG TABLET PO SCH (20:10)
[2020-11-22] MEDS: LOSARTAN 25MG TABLET PO SCH (20:10)
[2020-11-23] MEDS: HEPARIN 5,000 UNITS/ML, 1ML SQ SCH ×3 (00:12→16:01)
[2020-11-23 00:13] VITALS: BP 132/84
[2020-11-23] MEDS: OXYcodone IR 5MG TABLET PO PRN ×4 (01:46→21:20)
[2020-11-23] MEDS: ONDANSETRON ODT 4 MG PO PRN (02:47)
[2020-11-23 07:00] VITALS: BP 123/82
[2020-11-23] MEDS: TAMSULOSIN 0.4 MG CAP.ER.24H PO SCH (09:11)
[2020-11-23] MEDS: GABAPENTIN 100 MG CAPSULE PO SCH ×2 (09:11→21:21)
[2020-11-23] MEDS: DULOXETINE 30 MG CAPSULE.DR PO SCH (09:11)
[2020-11-23] MEDS: THIAMINE 100MG TABLET PO SCH ×2 (09:11→21:21)
[2020-11-23] MEDS: MULTIVITAMIN 1 TABLET PO SCH (09:11)
[2020-11-23] MEDS: ALLOPURINOL 300 MG TABLET PO SCH (09:11)
[2020-11-23] MEDS: MONTELUKAST 10 MG TABLET PO SCH (09:11)
[2020-11-23] MEDS: PRAMIPEXOLE 0.125MG TABLET PO SCH (09:11)
[2020-11-23] MEDS: SENNA/DOCUSATE TABLET PO SCH (09:11)
[2020-11-23] MEDS: SODIUM CHLORIDE FLUSH 10ML SYR IVF SCH ×2 (09:12→21:00)
[2020-11-23 14:00] VITALS: BP 125/83
[2020-11-23 19:29] VITALS: BP 109/68
[2020-11-23] MEDS: DIVALPROEX 500 MG TAB.ER.24H PO SCH (21:20)
[2020-11-23] MEDS: TRAZODONE 100MG TABLET PO SCH (21:21)
[2020-11-23 22:08] VITALS: BP 124/78
[2020-11-23] MEDS: AMLODIPINE 5 MG TABLET PO SCH (22:09)
[2020-11-23] MEDS: LOSARTAN 25MG TABLET PO SCH (22:09)
[2020-11-24 00:07] VITALS: BP 126/85
[2020-11-24] MEDS: HEPARIN 5,000 UNITS/ML, 1ML SQ SCH ×3 (00:10→16:12)
[2020-11-24] MEDS: OXYcodone IR 5MG TABLET PO PRN ×4 (02:47→20:09)
[2020-11-24] MEDS: GABAPENTIN 100 MG CAPSULE PO SCH ×2 (08:41→20:06)
[2020-11-24] MEDS: DULOXETINE 30 MG CAPSULE.DR PO SCH (08:41)
[2020-11-24] MEDS: SENNA/DOCUSATE TABLET PO SCH (08:41)
[2020-11-24] MEDS: THIAMINE 100MG TABLET PO SCH ×2 (08:41→20:05)
[2020-11-24] MEDS: SODIUM CHLORIDE FLUSH 10ML SYR IVF SCH ×2 (08:42→20:06)
[2020-11-24] MEDS: ALLOPURINOL 300 MG TABLET PO SCH (08:42)
[2020-11-24] MEDS: TAMSULOSIN 0.4 MG CAP.ER.24H PO SCH (08:42)
[2020-11-24] MEDS: MONTELUKAST 10 MG TABLET PO SCH (08:42)
[2020-11-24] MEDS: PRAMIPEXOLE 0.125MG TABLET PO SCH (08:42)
[2020-11-24] MEDS: MULTIVITAMIN 1 TABLET PO SCH (08:42)
[2020-11-24 08:58] VITALS: BP 127/71
[2020-11-24 13:16] VITALS: BP 122/79
[2020-11-24] MEDS: AMLODIPINE 5 MG TABLET PO SCH (20:05)
[2020-11-24] MEDS: POLYETHYLENE GLYCOL 17 GM PACKET PO PRN (20:05)
[2020-11-24] MEDS: DIVALPROEX 500 MG TAB.ER.24H PO SCH (20:05)
[2020-11-24] MEDS: LOSARTAN 25MG TABLET PO SCH (20:06)
[2020-11-24] MEDS: TRAZODONE 100MG TABLET PO SCH (20:06)
[2020-11-24 20:08] VITALS: BP 124/85
[2020-11-24] MEDS: BISACODYL 10 MG SUPP PR PRN (22:48)
[2020-11-25] MEDS: HEPARIN 5,000 UNITS/ML, 1ML SQ SCH ×4 (00:12→23:45)
[2020-11-25 01:31] VITALS: BP 109/68
[2020-11-25] MEDS: OXYcodone IR 5MG TABLET PO PRN ×5 (04:02→23:44)
[2020-11-25 08:16] VITALS: BP 132/85
[2020-11-25] MEDS: TAMSULOSIN 0.4 MG CAP.ER.24H PO SCH (08:33)
[2020-11-25] MEDS: GABAPENTIN 100 MG CAPSULE PO SCH ×2 (08:33→19:47)
[2020-11-25] MEDS: SENNA/DOCUSATE TABLET PO SCH (08:33)
[2020-11-25] MEDS: DULOXETINE 30 MG CAPSULE.DR PO SCH (08:33)
[2020-11-25] MEDS: MONTELUKAST 10 MG TABLET PO SCH (08:33)
[2020-11-25] MEDS: MULTIVITAMIN 1 TABLET PO SCH (08:33)
[2020-11-25] MEDS: PRAMIPEXOLE 0.125MG TABLET PO SCH (08:33)
[2020-11-25] MEDS: THIAMINE 100MG TABLET PO SCH ×2 (08:34→19:47)
[2020-11-25] MEDS: ALLOPURINOL 300 MG TABLET PO SCH (08:34)
[2020-11-25] MEDS: SODIUM CHLORIDE FLUSH 10ML SYR IVF SCH ×2 (08:34→19:49)
[2020-11-25 13:20] VITALS: BP 113/79
[2020-11-25] MEDS: AMLODIPINE 5 MG TABLET PO SCH (19:46)
[2020-11-25] MEDS: LOSARTAN 25MG TABLET PO SCH (19:46)
[2020-11-25] MEDS: DIVALPROEX 500 MG TAB.ER.24H PO SCH (19:46)
[2020-11-25] MEDS: TRAZODONE 100MG TABLET PO SCH (19:47)
[2020-11-25 20:49] VITALS: BP 107/70
[2020-11-26 02:02] VITALS: BP 124/73
[2020-11-26] MEDS: OXYcodone IR 5MG TABLET PO PRN ×3 (03:46→13:54)
[2020-11-26] MEDS: GABAPENTIN 100 MG CAPSULE PO SCH (08:37)
[2020-11-26] MEDS: SENNA/DOCUSATE TABLET PO SCH (08:37)
[2020-11-26] MEDS: DULOXETINE 30 MG CAPSULE.DR PO SCH (08:37)
[2020-11-26] MEDS: ALLOPURINOL 300 MG TABLET PO SCH (08:37)
[2020-11-26] MEDS: THIAMINE 100MG TABLET PO SCH (08:37)
[2020-11-26] MEDS: PRAMIPEXOLE 0.125MG TABLET PO SCH (08:37)
[2020-11-26] MEDS: MULTIVITAMIN 1 TABLET PO SCH (08:38)
[2020-11-26] MEDS: TAMSULOSIN 0.4 MG CAP.ER.24H PO SCH (08:38)
[2020-11-26] MEDS: HEPARIN 5,000 UNITS/ML, 1ML SQ SCH (08:38)
[2020-11-26] MEDS: SODIUM CHLORIDE FLUSH 10ML SYR IVF SCH (08:38)
[2020-11-26] MEDS: MONTELUKAST 10 MG TABLET PO SCH (08:38)
[2020-11-26 09:48] VITALS: BP 117/74
[2020-11-26 14:22] VITALS: BP 127/87
== END 2020-11-26 16:21 | DRG 641 ==
LOC: ED 13:50 → EDIP 19:46 → 3N 21:35
PROVIDERS: ADMIT Internal Medicine; ATTEND Family Medicine
DX: R62.7 Adult failure to thrive (principal); N17.9 Acute kidney failure, unspecified; M54.41 Lumbago with sciatica, right side; M10.9 Gout, unspecified; M06.9 Rheumatoid arthritis, unspecified; J44.9 Chronic obstructive pulmonary disease, unspecified; I10 Essential (primary) hypertension; G89.29 Other chronic pain; G62.9 Polyneuropathy, unspecified; F31.9 Bipolar disorder, unspecified; M19.90 Unspecified osteoarthritis, unspecified site; E86.0 Dehydration; M54.42 Lumbago with sciatica, left side; R32 Unspecified urinary incontinence; Z88.1 Allergy status to other antibiotic agents; Z79.899 Other long term (current) drug therapy
CPT/HCPCS: 36415; 72158; 80048; 81001; 82040; 85025; 87086; 96374; 99285; G0378; J1644; J1885; Q0162; A9575; J7030

== ENCOUNTER 2020-12-16 04:00 | Observation (INO) | payer OTHER ==
[~2020-12-16] VITALS: Ht 172.7 cm; Wt 102.0 kg
[2020-12-17 13:49] VITALS: BP 111/72
== END 2020-12-17 15:42 | disposition home or self-care (01) ==
LOC: ED 04:15 → EDIP 06:23 → INTOOBSV 06:23 → SUATTDRO 06:23 → 5SO 14:42
PROVIDERS: ADMIT Hospitalist; ATTEND Family Medicine
DX: R07.89 Other chest pain (principal); R79.89 Other specified abnormal findings of blood chemistry; M54.42 Lumbago with sciatica, left side; I10 Essential (primary) hypertension; M10.9 Gout, unspecified; G62.9 Polyneuropathy, unspecified; M19.90 Unspecified osteoarthritis, unspecified site; F31.9 Bipolar disorder, unspecified; J45.909 Unspecified asthma, uncomplicated; G89.29 Other chronic pain; F41.9 Anxiety disorder, unspecified; J44.9 Chronic obstructive pulmonary disease, unspecified; I49.3 Ventricular premature depolarization; M06.9 Rheumatoid arthritis, unspecified; F12.90 Cannabis use, unspecified, uncomplicated; Z91.14 Patient's other noncompliance with medication regimen; Z79.899 Other long term (current) drug therapy
CPT/HCPCS: 36415; 71046; 78452; 80048; 82040; 83735; 84484; 85025; 93005; 93017; 96372; 96374; 96375; 99285; A9502; G0378; J1644; J1885; J2785